=== PATIENT | female | born 1980 | race Caucasian/White ===

== ENCOUNTER 2020-04-22 07:44 | Outpatient (REF) | payer MEDICAID, SELFPAY ==
--- NOTE | ~2020-04-22 | MM_ITS ---
EXAMINATION: MM SCREENING DIGITAL BREAST TOMOSYNTHESIS, BILATERAL CLINICAL INFORMATION: Screening. Asymptomatic. Family history breast cancer, mother late 40s. The lifetime risk of breast cancer based on the Tyrer-Cuzick Model is 21%. COMPARISON: Mammography: 04/18/2019 (baseline) TECHNIQUE: Digital breast tomosynthesis is performed in both the craniocaudal and mediolateral oblique views along with computer-aided detection (CAD). Synthesized 2D images are generated from the tomosynthesis. FINDINGS: There are scattered areas of fibroglandular density (ACR BI-RADS breast composition Category b). There are no significant masses, abnormal calcifications, or other abnormalities. Parenchymal pattern is similar to prior studies. No significant changes. MM/MM tomosynthesis screening BI IMPRESSION: No mammographic evidence of malignancy. ASSESSMENT: BI-RADS 1: Negative RECOMMENDATION: 1. Routine annual mammography screening. 2. The lifetime risk of breast cancer based on the Tyrer-Cuzick Model is 21%. Additional annual adjunct screening with breast MRI may be of benefit in women with a risk score of 20% or greater. This patient's information was entered into a reminder system with a target due date for their next mammogram.
== END 2020-04-22 07:45 | disposition home or self-care (01) ==
LOC: HO.MAMMO 07:44
PROVIDERS: PCP Internal Medicine; Visit Provider Internal Medicine
DX: Z12.31 Encounter for screening mammogram for malignant neoplasm of breast (principal)
CPT/HCPCS: 77063; 77067

== ENCOUNTER → 2021-06-16 13:35 | Outpatient (RCR) | payer OTHER, MEDICAID, SELFPAY | END | disposition home or self-care (01) | LOC: HO.PTCHIC 11-28 13:47 | PROVIDERS: PCP Internal Medicine; Visit Provider Psychiatry & Neurology Neurology | DX: M25.562 Pain in left knee (principal) | CPT/HCPCS: 97110; 97161 ==

== ENCOUNTER 2022-03-25 15:10 | Outpatient (REF) | payer MEDICAID, SELFPAY ==
--- NOTE | ~2022-03-25 | XR_ITS ---
EXAMINATION: XR cervical spine 4V CLINICAL INFORMATION: Pain COMPARISON: None TECHNIQUE: 5 views of the cervical spine were obtained. FINDINGS: The cervical spine is visualized to the level of C7-T1 on the lateral view. Minimal anterolisthesis of C3 on C4. Vertebral body heights are maintained. Lateral masses of C1 are well aligned on C2. Visualized portion of the dens is intact. Mild degenerative disc disease at multiple levels, manifested by loss of disc space height and facet arthropathy. Uncovertebral hypertrophy and facet arthropathy results in moderate neural foraminal narrowing on the right at C3-C4 and in mild neural foraminal narrowing on the left at C3-C4 and C4-C5. No prevertebral soft tissue swelling. XR/XR cervical spine 4V IMPRESSION: * Mild spondylosis of the cervical spine, as above detailed. Spondylolisthesis, as above detailed. * Mild to moderate neural foraminal narrowing, as above detailed.
== END 2022-03-25 15:11 | disposition home or self-care (01) ==
LOC: HO.HMGCX 15:10
PROVIDERS: PCP Internal Medicine; Visit Provider Internal Medicine
DX: M54.2 Cervicalgia (principal)
CPT/HCPCS: 72050

== ENCOUNTER 2022-04-07 12:56 | Outpatient (REF) | payer MEDICAID, SELFPAY ==
--- NOTE | ~2022-04-07 | XR_ITS ---
EXAMINATION: XR RIBS, RIGHT CLINICAL INFORMATION: Right-sided rib pain status post fall. COMPARISON: None TECHNIQUE: 3 views of the right ribs were obtained. FINDINGS: Lungs are clear. No consolidation, pneumothorax, or pleural effusion. The cardiomediastinal silhouette and pulmonary vasculature are normal. Osseous structures are unremarkable. Ribs are intact. No fractures are identified. XR/XR ribs RT min 3V w CXR1V IMPRESSION: Unremarkable examination.
== END 2022-04-07 12:57 | disposition home or self-care (01) ==
LOC: HO.HMGCX 12:56
PROVIDERS: Visit Provider Internal Medicine
DX: R07.81 Pleurodynia (principal)
CPT/HCPCS: 71101

== ENCOUNTER 2022-04-27 12:59 | Outpatient (REF) | payer MEDICAID, SELFPAY ==
--- NOTE | 2022-04-27 | EEG_ITS ---
The waking background activity consists of a well-defined moderate-voltage posterior 10 Hz alpha frequency intermixed anteriorly with low-voltage fast frequencies. Photic stimulation, hyperventilation without activation. No sleep stages are identified. No focal, lateralizing, or paroxysmal discharges are seen. IMPRESSION: This waking EEG is within normal limits. MD LAYLA Freeman/MAN / [phone]
== END 2022-04-27 13:00 | disposition home or self-care (01) ==
LOC: HO.NEURO 12:59
PROVIDERS: PCP Internal Medicine; Visit Provider Internal Medicine
DX: R40.20 Unspecified coma (principal)
CPT/HCPCS: 95816

== ENCOUNTER → 2022-06-21 09:04 | Outpatient (REF) | payer MEDICAID, SELFPAY ==
--- NOTE | 2022-06-21 09:08 | HM_ITS ---
Conclusion: 1. Patient was monitored for total period of 2 days and 22 hours 2. Baseline was normal sinus rhythm with average heart of 76 beats per minute 3. No significant pauses or bradycardia noted 4. Rare PACs noted 1 SVT episode of 5 beats at 115 beats per minute 5. Patient reported 4 events with symptoms of racing heart or dizziness correlating with sinus rhythm MTDD
== END ==
LOC: HO.CARD 09:04
PROVIDERS: Visit Provider Internal Medicine
DX: R00.2 Palpitations (principal)
CPT/HCPCS: 93242

== ENCOUNTER 2023-03-21 09:02 | Outpatient (REF) | payer MEDICAID, SELFPAY | END 2023-03-21 09:03 | disposition home or self-care (01) | LOC: HO.SH 09:02 | PROVIDERS: Visit Provider Internal Medicine | DX: Z01.118 Encounter for examination of ears and hearing with other abnormal findings (principal); H90.3 Sensorineural hearing loss, bilateral; H93.13 Tinnitus, bilateral | CPT/HCPCS: 92557; 92567 ==

== ENCOUNTER 2023-04-05 10:17 | Outpatient (REF) | payer MEDICAID, SELFPAY ==
--- NOTE | ~2023-04-05 | XR_ITS ---
EXAMINATION: XR HAND/WRIST, RIGHT CLINICAL INFORMATION: Right-sided pain with question CMC arthritis. COMPARISON: Right hand 02/08/2019. TECHNIQUE: PA, lateral, and oblique views of the right hand and wrist. FINDINGS: There is some mild degenerative changes seen at the first CMC joint with some sclerosis and osteophyte formation and some mild lateral subluxation. Findings appear slightly worsened when compared to the 02/08/2019 study. Incidental note made once again of some small cysts in the capitate. No fractures or dislocations. No bony destructive lesions. XR/XR hand wrist RT IMPRESSION: Mild degenerative changes first CMC joint.
== END 2023-04-05 10:18 | disposition home or self-care (01) ==
LOC: HO.HOSX 10:17
PROVIDERS: PCP Internal Medicine; Visit Provider Physical Medicine & Rehabilitation
DX: M65.311 Trigger thumb, right thumb (principal); M25.541 Pain in joints of right hand; Z79.899 Other long term (current) drug therapy
CPT/HCPCS: 73110; 73130; 99202

== ENCOUNTER 2023-04-05 10:17 | Outpatient (AMB) | payer MEDICAID, SELFPAY ==
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
== END 2023-04-05 11:11 | disposition home or self-care (01) ==
PROVIDERS: PCP Internal Medicine; Visit Provider Physical Medicine & Rehabilitation
DX: M65.311 Trigger thumb, right thumb (principal); M25.541 Pain in joints of right hand
CPT/HCPCS: 99204

== ENCOUNTER 2023-04-05 11:16 | Outpatient (REF) | payer MEDICAID, SELFPAY ==
[2023-04-05 16:28] LABS: Rheumatoid Factor < 13.0 IU/mL (<15.0)
[2023-04-12 15:24] LABS: Anti Nuclear Antibody Screen NEGATIVE (NEGATIVE)
== END 2023-04-05 11:17 | disposition home or self-care (01) ==
LOC: HO.10HDL 11:16
PROVIDERS: Visit Provider Physical Medicine & Rehabilitation
DX: M25.50 Pain in unspecified joint (principal); M65.311 Trigger thumb, right thumb
CPT/HCPCS: 36415; 73110; 73130; 86038; 86431; 99202

== ENCOUNTER 2023-04-06 09:22 | Outpatient (RCR) | payer MEDICAID, SELFPAY ==
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
== END 2023-07-11 14:26 | disposition still patient (30) ==
LOC: HO.SH 09:22
PROVIDERS: Visit Provider Internal Medicine
DX: R47.9 Unspecified speech disturbances (principal)
CPT/HCPCS: 92523

== ENCOUNTER 2023-04-25 11:23 | Outpatient (REF) | payer MEDICAID, SELFPAY ==
[2023-04-25 14:48] LABS: Cholesterol 151 mg/dL (<200); HDL Cholesterol 43 mg/dL (>40); LDL Cholesterol Calculated 90 mg/dL (<100); Triglycerides 90 mg/dL (<150)
[2023-04-26 08:07] LABS: ~HepC Num1 0.11 S/CO (0.00-0.79); ~Hepatitis C Antibody Nonreactive (Nonreactive)
== END 2023-04-25 11:24 | disposition home or self-care (01) ==
LOC: HO.CHCLDS 11:23
PROVIDERS: Visit Provider Internal Medicine
DX: Z00.00 Encounter for general adult medical examination without abnormal findings (principal); E11.65 Type 2 diabetes mellitus with hyperglycemia; E66.9 Obesity, unspecified
CPT/HCPCS: 36415; 80061; 86803

== ENCOUNTER 2023-05-11 09:20 | Outpatient (AMB) | payer MEDICAID, SELFPAY ==
--- NOTE | 2023-05-11 09:28 | MHC.OFFVIS ---
Intake Intake Visit Reasons: OV - Right Trigger Thumb Intake Note: Pt presents to the office today for an office visit for right trigger thumb. Pt states she is still having pain and she states she has not had any improvement. Pt states the pain goes from her thumb up to her elbow. Pt states she isnt sure if she has numbness and tingling from her trigger thumb or her neuropathy. Allergies Penicillins [PENICILLINS] Allergy (Unknown, Unverified 05/11/23 09:28) UNKNOWN Sulfa (Sulfonamide Antibiotics) [SULFA (SULFONAMIDE ANTIBIOTICS)] Allergy (Unknown, Unverified 05/11/23 09:28) UNKNOWN Medication List - Last Reconciled 05/11/23 by Mireya Garcia MD aripiprazole 5 mg PO BEDTIME cholecalciferol (vitamin D3) (Vitamin D3) 50 mcg PO DAILY cyanocobalamin (vitamin B-12) (Vitamin B-12) 500 mcg PO DAILY diclofenac potassium 50 mg PO BID diclofenac sodium 1% 2 grams topical TID PRN econazole 1% appl topical QAM hydroxyzine pamoate 50 mg PO BEDTIME PRN loratadine 10 mg PO QAM magnesium oxide 400 mg PO DAILY metformin 500 mg PO pravastatin 80 mg PO QAM sertraline 25 mg PO QAM spironolactone 100 mg PO BID topiramate 50 mg PO BID verapamil ER 120 mg PO QPM verapamil ER 240 mg PO DAILY HPI HPI Comments History of Present Illness Details Per medical records review, patient has history of Chiari 1 malformation, chronic migraine without aura, vertigo, balance issues, cognitive difficulty, word-finding difficulty, follows with Neurology Dr. Ayla Graff). History of ICH 2019, non traumatic. She had been complaining of right wrist pain and right 1st MCP thumb pain, per medical records from [facility]. EMG report January [address] Reveles, normal. Dr. Reveles thought it was trigger thumb. History of diabetes. History of neuropathy, hard for her to tell which part comes from that. Family history of RA, mom. Right worse lef handed thumb/wrist pain for at least 2 years. No definite trauma or falls. She likes crafting, wreaths. Pain bothers her daily. Points to bottoms of thumb. No xray recently. After I saw her, I put her on a thumb/finger splint. She wore this all the time during the day. She says she has not noticed any triggering/locking of the finger. However he continues to have pain, pointing to APB muscle. Seems to be coming from the wrists as well. She likes to craft. [facility] Medical History (Updated 05/11/23 @ 12:05 by Mireya Garcia MD) CMC arthritis Carpal tunnel syndrome of right wrist Surgical History Hx of tonsillectomy Social History Household Members: Children Housing: Apartment Alcohol intake: current Alcohol intake frequency: holidays/special occasions only Patient Tobacco Use Status: Current everyday Tobacco user Cigarettes Per Day: 2 Substance Use Type: Marijuana Physical Exam Constitutional: Patient appears to be in no acute distress, well nourished and well developed. MSK: No joint effusion noted. No deformity noted. No intrinsic hand weakness noted. No atrophy noted. Cornelia test negative. Carpal compression test positive right. Tinel sign negative. No triggering. Strength is 5/5 in all muscle groups tested. No increased tone noted. Neurological: Randolph?s negative bilaterally. Gait is non-antalgic without loss of balance. Results Reviewed Results Reviewed: Ordering Physician: Mireya Mohan Date of Service: 04/05/23 Procedure(s): XR hand wrist RT Accession Number(s): [id number] cc: Alfreda Perez MD; Mireya Mohan~ EXAMINATION: XR HAND/WRIST, RIGHT CLINICAL INFORMATION: Right-sided pain with question CMC arthritis. COMPARISON: Right hand 02/08/2019. TECHNIQUE: PA, lateral, and oblique views of the right hand and wrist. FINDINGS: There is some mild degenerative changes seen at the first CMC joint with some sclerosis and osteophyte formation and some mild lateral subluxation. Findings appear slightly worsened when compared to the 02/08/2019 study. Incidental note made once again of some small cysts in the capitate. No fractures or dislocations. No bony destructive lesions. XR/XR hand wrist RT IMPRESSION: Mild degenerative changes first CMC joint. Assessment & Plan Assessment & Plan (1) Carpal tunnel syndrome of right wrist: Code(s): G56.01 - Carpal tunnel syndrome, right upper limb (2) CMC arthritis: Code(s): M19.049 - Primary osteoarthritis, unspecified hand Plan Clinically, I would say symptoms are coming from Carpal Tunnel Syndrome. However EMG done by Dr. Reveles last January was reported to be normal. I would still consider repeating that 6 months after. We will put her on a resting wrist splint for sleeping time. Since she likes to craft and a thumb pain aggravates her, would put her on a comfort cool thumb spica that she can wear during grafting or during the day. No signs of trigger finger today. No signs of de Quervain. Mild 1st CMC joint arthritis. Assessment and plan discussed with patient, and patient was agreeable. All questions were answered thoroughly. Follow-up 2 months. Mireya Garcia MD, DAJA Board Certified, [place] [employer] and Rehabilitation (ABPMR) Board Certified, [place] [employer] Electrodiagnostic Medicine (ABEM) Coding Level of Care Code Est Pt Level 3 (34534) Diagnoses Carpal tunnel syndrome of right wrist G56.01 CMC arthritis M19.049
== END 2023-05-11 10:13 | disposition home or self-care (01) ==
PROVIDERS: PCP Internal Medicine; Referring Provider Internal Medicine; Visit Provider Physical Medicine & Rehabilitation
DX: G56.01 Carpal tunnel syndrome, right upper limb (principal); M19.049 Primary osteoarthritis, unspecified hand
CPT/HCPCS: 99213

== ENCOUNTER → 2023-05-11 09:20 | Outpatient (BNVA) | payer MEDICAID, SELFPAY | PROVIDERS: PCP Internal Medicine; Visit Provider Physical Medicine & Rehabilitation | DX: G56.01 Carpal tunnel syndrome, right upper limb (principal); M19.041 Primary osteoarthritis, right hand | CPT/HCPCS: 99212 ==

== ENCOUNTER 2023-05-18 09:31 | Outpatient (REF) | payer MEDICAID, SELFPAY | END 2023-05-18 09:32 | disposition home or self-care (01) | LOC: HO.MAMMO 09:31 | PROVIDERS: PCP Internal Medicine; Visit Provider Internal Medicine | DX: Z12.31 Encounter for screening mammogram for malignant neoplasm of breast (principal) | CPT/HCPCS: 77063; 77067 ==

== ENCOUNTER → 2023-05-18 09:45 | Outpatient (BNV) | payer MEDICAID, SELFPAY | PROVIDERS: PCP Internal Medicine; Visit Provider Radiology Diagnostic Radiology | DX: Z12.31 Encounter for screening mammogram for malignant neoplasm of breast (principal) | CPT/HCPCS: 77063; 77067 ==

== ENCOUNTER 2023-06-15 09:45 | Outpatient (AMB) | payer MEDICAID, SELFPAY ==
--- NOTE | 2023-06-15 09:52 | MHC.OFFVIS ---
Vital Signs 06/15/23 10:02 Height 5 ft 4 in Weight 194 lb BMI 33.3 Intake Visit Reasons: OV - Right Trigger Thumb Intake Note: Jacey 43 yr old female presents today for her 2 month follow up for her right hand Carpal tunnel syndrome and CMC arthritis pain s/p wearing brace given. States her pain is has not improved. States she is now having pain in her left thumb however her right is worse since its her dominant hand. Allergies Penicillins [PENICILLINS] Allergy (Unknown, Unverified 06/15/23 10:03) UNKNOWN Sulfa (Sulfonamide Antibiotics) [SULFA (SULFONAMIDE ANTIBIOTICS)] Allergy (Unknown, Unverified 06/15/23 10:03) UNKNOWN Medication List - Last Reconciled 06/15/23 by Mireya Garcia MD aripiprazole 5 mg PO BEDTIME cholecalciferol (vitamin D3) (Vitamin D3) 50 mcg PO DAILY cyanocobalamin (vitamin B-12) (Vitamin B-12) 500 mcg PO DAILY diclofenac potassium 50 mg PO BID diclofenac sodium 1% 2 grams topical TID PRN econazole 1% appl topical QAM hydroxyzine pamoate 50 mg PO BEDTIME PRN loratadine 10 mg PO QAM magnesium oxide 400 mg PO DAILY metformin 500 mg PO pravastatin 80 mg PO QAM sertraline 25 mg PO QAM spironolactone 100 mg PO BID topiramate 50 mg PO BID verapamil ER 120 mg PO QPM verapamil ER 240 mg PO DAILY HPI Comments Details: Per medical records review, patient has history of Chiari 1 malformation, chronic migraine without aura, vertigo, balance issues, cognitive difficulty, word-finding difficulty, follows with Neurology Dr. Ayla Graff). History of ICH 2019, non traumatic. She had been complaining of right wrist pain and right 1st MCP thumb pain, per medical records from [facility]. EMG report January [address] Reveles, normal. Dr. Reveles thought it was trigger thumb. History of diabetes. History of neuropathy, hard for her to tell which part comes from that. Family history of RA, mom. Right worse lef handed thumb/wrist pain for at least 2 years. No definite trauma or falls. She likes crafting, wreaths. Pain bothers her daily. Points to bottoms of thumb. No xray recently. She has been wearing thumb spica daily and wrist splints nightly as advised. She says she has not noticed any triggering/locking of the finger. Wrist pain improved. However he continues to have pain, pointing to APB muscle. And almost constant numbness 1st and 2nd fingertips, even left has started. Note that she had previously poorly controlled DM, now improved/controlled, and was told in past to have neuropathy, though no EMG on BLE. FORMERLY [facility], [facility] Medical History (Updated 06/15/23 @ 10:16 by Mireya Garcia MD) CMC arthritis Carpal tunnel syndrome of right wrist Surgical History Hx of tonsillectomy Social History Household Members: Children Housing: Apartment Alcohol intake: current Alcohol intake frequency: holidays/special occasions only Patient Tobacco Use Status: Current everyday Tobacco user Cigarettes Per Day: 2 Substance Use Type: Marijuana Physical Exam Vital Signs: BMI result Body Mass Index 33.3 Constitutional: Patient appears to be in no acute distress, well nourished and well developed. MSK: No joint effusion noted. No deformity noted. No intrinsic hand weakness noted. No atrophy noted. Cornelia test negative. Carpal compression test positive right. Tinel sign negative on elbow. No triggering. Strength is 5/5 in all muscle groups tested. No increased tone noted. Neurological: Randolph?s negative bilaterally. Gait is non-antalgic without loss of balance. Results Reviewed Results Reviewed: Ordering Physician: Mireya Mohan Date of Service: 04/05/23 Procedure(s): XR hand wrist RT Accession Number(s): [id number] cc: Alfreda Perez MD; Mireya Mohan~ EXAMINATION: XR HAND/WRIST, RIGHT CLINICAL INFORMATION: Right-sided pain with question CMC arthritis. COMPARISON: Right hand 02/08/2019. TECHNIQUE: PA, lateral, and oblique views of the right hand and wrist. FINDINGS: There is some mild degenerative changes seen at the first CMC joint with some sclerosis and osteophyte formation and some mild lateral subluxation. Findings appear slightly worsened when compared to the 02/08/2019 study. Incidental note made once again of some small cysts in the capitate. No fractures or dislocations. No bony destructive lesions. XR/XR hand wrist RT IMPRESSION: Mild degenerative changes first CMC joint. Assessment & Plan Assessment & Plan (1) Carpal tunnel syndrome on both sides: Code(s): G56.03 - Carpal tunnel syndrome, bilateral upper limbs Category: Medical Plan She no longer have signs of De Quervain tenosynovitis, non tender now, with wearing the thumb spica splints during day time. However continues to have numbness on tips of 1st and 2nd digits, bilateral, and pain on thenar eminence. No atrophy. Xray did show CMC arthritis but no point tenderness on the joint. I would still recommend repeating EMG BUE. Patient willing. Continue wrist splints at night, will get her one for left. Note that she had previously poorly controlled DM, now improved/controlled, and was told in past to have neuropathy, though no EMG on BLE. Orders: Orders NE nerve conduction velocity Today G56.03 - Carpal tunnel syndrome, bilateral upper limbs NE electromyogram (EMG) Today G56.03 - Carpal tunnel syndrome, bilateral upper limbs Coding Level of Care Code Est Pt Level 3 (45110) Diagnoses Carpal tunnel syndrome on both sides G56.03
[2023-06-15 10:02] VITALS: BMI 33.3
== END 2023-06-15 10:24 | disposition home or self-care (01) ==
PROVIDERS: PCP Internal Medicine; Referring Provider Internal Medicine; Visit Provider Physical Medicine & Rehabilitation
DX: G56.03 Carpal tunnel syndrome, bilateral upper limbs (principal)
CPT/HCPCS: 99213

== ENCOUNTER → 2023-06-15 09:45 | Outpatient (BNVA) | payer MEDICAID, SELFPAY | PROVIDERS: PCP Internal Medicine; Visit Provider Physical Medicine & Rehabilitation | DX: G56.03 Carpal tunnel syndrome, bilateral upper limbs (principal) | CPT/HCPCS: 99212 ==

== ENCOUNTER 2023-06-30 09:53 | Outpatient (REF) | payer MEDICAID, SELFPAY ==
--- NOTE | 2023-06-30 09:58 | EMG_ITS ---
Chief complaint: Bilateral hand numbness Reason for referral: Evaluate for Carpal Tunnel Syndrome Procedure done: Bilateral upper extremities NCS/EMG Precautions and/or limitations: None The limb temperature was monitored continuously and remained between 32-36 degrees C during the performance of the NCS. Nerve Conduction Studies Anti Sensory Summary Table ?Stim Site NR Onset (ms) Norm Onset (ms) Peak (ms) Norm Peak (ms) O-P Amp (?V) Norm O-P Amp Site1 Site2 Delta-0 (ms) Dist (cm) Usman (m/s) Norm Usman (m/s) Left Median Anti Sensory (2nd Digit) Wrist ? 2.8 3.4 <3.6 51.3 >10 Wrist 2nd Digit 2.8 14.0 50 Right Median Anti Sensory (2nd Digit) Wrist ? 2.7 3.3 <3.6 56.8 >10 Wrist 2nd Digit 2.7 14.0 52 Left Ulnar Anti Sensory (5th Digit) Wrist ? 2.5 3.1 <3.7 43.8 >15.0 Wrist 5th Digit 2.5 14.0 56 Right Ulnar Anti Sensory (5th Digit) Wrist ? 2.2 2.8 <3.7 31.1 >15.0 Wrist 5th Digit 2.2 14.0 64 Motor Summary Table ?Stim Site NR Onset (ms) Norm Onset (ms) O-P Amp (mV) Norm O-P Amp iAmp (mV) Amp (1st) (%) Site1 Site2 Delta-0 (ms) Dist (cm) Usman (m/s) Norm Usman (m/s) Left Median Motor (Abd Poll Brev) Wrist ? 3.4 <3.9 9.2 >4.5 11.8 100.0 Elbow Wrist 4.0 21.5 54 >45 Elbow ? 7.4 9.0 11.4 97.8 Right Median Motor (Abd Poll Brev) Wrist ? 3.7 <3.9 9.0 >4.5 11.3 100.0 Elbow Wrist 4.0 19.5 49 >45 Elbow ? 7.7 8.5 10.8 94.4 Left Ulnar Motor (Abd Dig Minimi) Wrist ? 2.8 <3.0 6.5 >5 7.4 100.0 B Elbow Wrist 3.3 18.0 55 >45 B Elbow ? 6.1 6.3 7.7 96.9 A Elbow B Elbow 1.6 10.0 62 >45 A Elbow ? 7.7 6.4 7.7 98.5 Right Ulnar Motor (Abd Dig Minimi) Wrist ? 2.6 <3.0 8.8 >5 9.9 100.0 B Elbow Wrist 3.4 18.5 54 >45 B Elbow ? 6.0 8.3 9.5 94.3 A Elbow B Elbow 1.4 10.0 71 >45 A Elbow ? 7.4 7.2 8.3 81.8 Comparison Summary Table ?Stim Site NR Peak (ms) Norm Peak (ms) P-T Amp (?V) Site1 Site2 Delta-P (ms) Norm Delta (ms) Left Median/Radial Dig I Comparison (Digit 1 - 10cm) Median ? 2.8 <2.9 74.4 Median Radial 0.8 Radial ? 2.0 <2.8 30.0 Right Median/Radial Dig I Comparison (Digit 1 - 10cm) Median ? 2.8 <2.9 66.4 Median Radial 0.5 Radial ? 2.3 <2.8 24.0 EMG ?Side Muscle Nerve Root Ins Act Fibs Psw Amp Dur Poly Recrt Int Pat Comment Right 1stDorInt Ulnar C8-T1 Nml Nml Nml Nml Nml 0 Nml Complete Right FlexCarRad Median C6-7 Nml Nml Nml Nml Nml 0 Nml Complete Right Biceps Musculocut C5-6 Nml Nml Nml Nml Nml 0 Nml Complete Right Triceps Radial C6-7-8 Nml Nml Nml Nml Nml 0 Nml Complete Right Deltoid Axillary C5-6 Nml Nml Nml Nml Nml 0 Nml Complete Left 1stDorInt Ulnar C8-T1 Nml Nml Nml Nml Nml 0 Nml Complete Left FlexCarRad Median C6-7 Nml Nml Nml Nml Nml 0 Nml Complete Left Biceps Musculocut C5-6 Nml Nml Nml Nml Nml 0 Nml Complete Left Triceps Radial C6-7-8 Nml Nml Nml Nml Nml 0 Nml Complete Left Deltoid Axillary C5-6 Nml Nml Nml Nml Nml 0 Nml Complete FINDINGS: Significant interlatency difference seen between median and radial sensory nerves, bilateral. Otherwise rest of nerves tested were within normal. Concentric needle EMG was performed in selected muscles of the bilateral upper extremities. Study did not reveal signs of electric abnormalities as shown in the table below. IMPRESSION: 1. This is an abnormal study. 2. There is electrodiagnostic evidence for bilateral very mild/borderline median neuropathy at the wrist, still consistent with carpal tunnel syndrome. 3. There is no electrodiagnostic evidence for ulnar neuropathy, brachial plexopathy, or cervical radiculopathy. Thank you for your kind referral. Mireya Garcia MD, DAJA Board Certified, [place] [employer] and [employer] (ABPMR) Board Certified, [place] Board of Electrodiagnostic Medicine (ABEM) CODIN 53681 x 2 MTDD
== END 2023-06-30 09:54 | disposition home or self-care (01) ==
LOC: HO.NEURO 09:53
PROVIDERS: PCP Internal Medicine; Visit Provider Physical Medicine & Rehabilitation
DX: G56.03 Carpal tunnel syndrome, bilateral upper limbs (principal)
CPT/HCPCS: 95886; 95911

== ENCOUNTER → 2023-06-30 09:58 | Outpatient (BNV) | payer MEDICAID, SELFPAY | PROVIDERS: PCP Internal Medicine; Visit Provider Physical Medicine & Rehabilitation | DX: G56.03 Carpal tunnel syndrome, bilateral upper limbs (principal) | CPT/HCPCS: 95886; 95911 ==

== ENCOUNTER 2024-04-18 11:29 | Outpatient (REF) | payer MEDICAID, SELFPAY ==
[2024-04-18 14:21] LABS: MANUAL DIFF FLAG NO
[2024-04-18 14:25] LABS: Creatinine Urine 180.38 mg/dL; Microalbum/Creatinine Ratio Ur 4.4 ug/mg cr (<30)
[2024-04-18 14:30] LABS: Basophils Percent Auto 0.4 % (0-2); Eosinophils Absolute Auto 0.1 X10*3/uL (0.0-0.4); Eosinophils Percent Auto 0.7 % (0-4); Hematocrit 42.8 % (37.0-47.0); Hemoglobin 14.9 g/dl (12.0-16.0); Imm Gran Abs Auto 0.03 X10*3/uL (0.00-0.03); Imm Gran Pct Auto 0.4 % (0.0-0.4); Lymphocytes Percent Auto 25.3 % (20-40); Mean Corpuscular HGB Conc 34.8 g/dl (31.0-35.0); Mean Corpuscular Hemoglobin 30.7 pg (27.0-33.0); Mean Corpuscular Volume 88.2 fL (80.0-98.0); Mean Platelet Volume 10.6 fL (9.4-12.3); Monocytes Absolute Auto 0.4 X10*3/uL (0.1-1.2); Neutrophils Absolute Auto 5.5 x10*3/uL (2.0-8.3); Neutrophils Percent Auto 68.2 % (45-73); Platelet Count 225 X10*3/uL (160-400); Red Blood Count 4.85 X10*6/uL (4.20-5.50); Red Cell Distribution Width 13.2 % (11.0-16.0)
--- OUTSIDE RECORDS SUMMARY | 2024-04-18 14:51 | XMS_ITS | Clinical Summary ---
Author Organization [facility] Address [address] [place] [address] Care Team Providers Care Network Specialist Name Role Phone Alfreda Perez Primary Care Provider [phone] Allergies Active Allergy Reactions Criticality Noted Date Comments Penicillins Hives 01/21/2010 Sulfa (Sulfonamide Antibiotics) Hives 01/06 Medications cyclobenzaprine (FLEXERIL) 10 mg tablet Take 5 mg by mouth 2 times a day as needed. 3 Active loratadine (CLARITIN) 10 mg tablet Take 1 tablet by mouth once a day. 3 Active metFORMIN (GLUCOPHAGE) 500 mg tablet Take 500 mg by mouth daily with food. Active omeprazole (PriLOSEC) 40 mg capsule Take 1 capsule by mouth. 2 Active pravastatin (PRAVACHOL) 80 mg tablet Take 80 mg by mouth once a day. Active sertraline (ZOLOFT) 25 mg tablet Take 25 mg by mouth once a day. Active spironolactone (ALDACTONE) 100 mg tablet Take 100 mg by mouth once a day. Active hydrocortisone 2.5% cream Apply topically to the affected area 2 times a day. Apply to affected area 3 Active econazole nitrate 1% cream Apply topically to the affected area once a day. 3 Active diclofenac (CATAFLAM) 50 mg tablet Take 50 mg by mouth 2 times a day. Active aspirin-acetami nophen-caffeine (Excedrin Migraine) 250-250-65 mg per tablet Take 1 tablet by mouth every 6 hours as needed for headache. 90 tablet 11 3 Active lamoTRIgine (LaMICtal) 25 mg tablet Taking 50 mg once a day. 4 Active IPRATROPIUM BROMIDE NASAL Administer 21 mcg into affected nostril(s). Active topiramate (TOPAMAX) 100 mg tablet Take 1 tablet (100 mg total) by mouth once a day. 30 tablet 5 4 Active magnesium oxide (MAG-OX) 400 mg (241.3 mg mag) tablet Take 1 tablet (400 mg total) by mouth 2 times a day. 30 tablet 5 4 Active magnesium oxide (MAG-OX) 400 mg (241.3 mg mag) tablet Take 1 tablet (400 mg total) by mouth 2 (two) times a day. 60 tablet 4 Active verapamil SR (CALAN SR) 120 mg tablet TAKE 1 TABLET BY MOUTH EVERY EVENING WITH VERAPAMIL 240 MG EVERY MORNING TOLERATED 90 tablet 11 4 Active cholecalciferol (VITAMIN D3) 2,000 unit capsule TAKE 1 CAPSULE BY MOUTH EVERY DAY 90 capsule 5 4 Active cyanocobalamin (vitamin B-12) 500 mcg tablet Take 1 tablet (500 mcg total) by mouth once a day. 90 tablet 4 Active riboflavin (VITAMIN B2) 100 mg tablet Take 2 tablets (200 mg total) by mouth 2 times a day. 120 tablet 4 Active verapamil SR (CALAN SR) 240 mg tablet Take 1 tablet (240 mg total) by mouth in the morning. Take verapamil ER 240 mg in the morning along with 120 mg in the evening 90 tablet 4 Active Active Problems Problem Noted Date Diagnosed Date Headache, chronic migraine without aura 10/24/19 24 Vitamin B12 deficiency 01/01/2023 Vitamin D deficiency 01/01/2023 Right-sided nontraumatic intracerebral hemorrhag e 12/21/2022 Cognitive impairment 12/21/2022 Chronic migraine without aur a with status migrainosus, not intractable 12/21/2022 Cocaine abuse in remission ([facility]) 12/21/2022 Alcoholism in remission ([facility]) 12/21/2022 Overview (12/21/2022): still has 2-3 drinks a month Balance problem 12/21/2022 Cannabis dependence, daily use 12/21/2022 Headache disorder 12/21/2022 Word finding difficulty 12/21/2022 Stutter 12/21/2022 Dysphagia, oropharyngeal phase 12/21/2022 Carpal tunnel syndrome of right wrist 12/21/2022 Cervical stenosis of spinal canal 12/21/2022 Chronic low back pain with left-sided sciatica 1 02/20/2022 Class 1 obesity with serious comorbidity and body mass index (BMI) of 30.0 to 30.9 in adult 12/21/2022 Chiari I malformation (CMS/HCC) 12/21/2022 Encounters Date Type Department Care Team Description 04/11/2024 2:00 PM EST Office Visit [facility] [address] [place], [place] [id number] Pulp Grinder Feeder: Robert Macedo MD Chronic migraine without aura without status migrainosus, not intractable (Primary Dx) 01/25/2024 Orders Only [facility] Neurology [address] [place] [id number] Ayla Graff MD 01/25/2024 Telephone [facility] Neurology [address] [place] [address] [id number] Tamiko Whitten, [facility] Med Refill from Last 3 Months Family History Medical History Relation Name Comments Aneurysm Father in right arm Stroke Father Migraines Father's Sister Alzheimer's disease Maternal Grandmother advanced quickly in 2 years and , was in her 80s; both parents had Alzheimers too and in 90s Migraines Maternal Grandmother Intracerebral hemorrhage Mother due to hypertension, in 20s Seizures Mother's Brother 1 recurrent siezures, grand mal, as a result at age 49 Brain cancer Mother's Brother 2 metastase s, unknown origin, before full workup; he was in Migraines Mother's Sister Stroke Paternal Grandfather Migraines Paternal Grandmother Stroke Paternal Grandmother Relation Name Status Comments Father Father's Sister Alive Maternal Grandmother Mother Mother's Brother 1 Mother's Brother 2 Alive Mother's Sister Alive Paternal Grandfather Paternal Grandmother Social History Tobacco Use Types Packs/Day Years Used Date Smoking Tobacco: Every Day Cigarettes Smokeless Tobacco: Never Tobacco Cessation:Ready to Q uit: Not Asked; Counseling Given: Not Answered Comments:0-2 cig/day, trying hard to quit Alcohol Use Standard Drinks/Week Comments Yes 0 (1 standard drink = 0.6 oz pure alcohol) down to 2-3 drinks a month; used to drink 5-6 drinks a day, cut down in mid-2022, trying to quit Comments Unknown Sex and Gender Information Value Date Recorded Sex Assigned at Female 10/31/2023 11:09 AM EDT Legal Sex Female 11:49 AM EDT Gender Identity Female 10/31/2023 11:09 AM EDT Sexual Orientation Not on file Last Filed Vital Signs Vital Sign Reading Time Taken Comments Blood Pressure 115/76 04/11/2024 2:00 PM EST Pulse 87 04/11/2024 2:00 PM EST Temperature 36.7 ??C (98 ??F) 12/21/2022 9:43 AM EST Respiratory Rate - - Oxygen Saturation 100% 01/16/2024 11:20 AM EST Inhaled Oxygen Concentration - - Weight 88.9 kg (196 lb) 08/25/2023 10:50 AM EDT Height - - Body Mass Index - - Plan of Treatment Upcoming Encounters Date Type Department Care Team (Late st Contact Info) Description 06/04/2024 11:00 AM EDT Office Visit [facility] [address] [place] [id number] Pulp Grinder Feeder: Trini Stephens 07/09/2024 11:00 AM EDT Office Visit [facility] [address] [place] [phone] Pulp Grinder Feeder: Trini Stephens 09/10/2024 10:00 AM EDT Follow-Up [facility] Neurology [address] [place] [id number] Ayla Graff MD [address] [place] [phone] Health Maintenance Due Date Last Done Comments Cervical Cancer Screening 1979 Cologuard 1979 Colon Cancer Screening 1979 Colonoscopy 1979 FOBT / Fit Test 1979 HIV Screening 1979 HPV and Pap Smear 1979 Pap Smear 1979 Sigmoidoscopy 1979 Medicare AWV 01/15/1980 Hepatitis B Vaccines (1 of 3 - 19+ 3-dose series) 1998 Mammogram 04/18/2021 04/19/2019 COVID-19 Vaccine (4 - 2023-2 5 season) 2023 04/25/2023, 07/03/2020, 06/05/2020 Influenza Vaccine (#1) 2023 , 12/10/2020, 11/20/2019, Additional history exists Basic Metabolic Panel 12/22/2023 12/21/2022 Alcohol/Substance Use Screening 02/07/2024 Depression Screening and Follow-Up 02/07/2024 Social Drivers of Health [place] ual Screening 02/07/2024 DTaP,Tdap,and Td Vaccines (3 - Td or Tdap) 02/28/2029 02/28/2019, 09/06/2007 RSV Vaccine (60+ years old a nd patients) (1 - 1-dose 75+ series) 2054 Hepatitis C Screening Completed 04/25/2023 Pneumococcal Vaccine: Pediat brii (0-5 Years) and At-Risk Patients (6-50 Years) Completed 04/25/2023 Procedures * Due to [place] [employer] law, this organization might not be sharing negative HIV tests. Procedure Name Priority Date/Time Associated Diagnosis Comments COMPREHENSIVE METABOLIC PANEL Routine 12/21/2022 1:11 PM EST Cognitive impairment from Last 3 Months or Most Recently Relevant to Health Maintenance Results * Due to [place] [employer] law, this organization might not be sharing negative HIV tests. * (ABNORMAL) Comprehensive Metabolic Panel (12/21/2022 1:11 PM EST) NA 137 135 - 145 mmol/L 12/21/2022 2:09 PM EST [facility] K 3.9 3.5 - 5.3 mmol/L 12/21/2022 2:09 PM [facility] Cl 108 97 - 110 mmol/L 12/21/2022 2:09 PM [facility] CO2 21(L) 24 - 32 mmol/L 12/21/2022 2:09 PM [facility] Anion Gap 8 5 - 15 12/21/2022 2:09 PM [facility] Glucose 92 70 - 99 mg/dL 12/21/2022 2:09 PM [facility] Creatinine 0.60 0.50 - 1.20 mg/dL 12/21/2022 2:09 PM [facility] Calcium 9.2 8.7 - 10.7 mg/dL 12/21/2022 2:09 PM [facility] Total Protein 7.3 6.0 - 8.0 g/dL 12/21/2022 2:09 PM [facility] Albumin 4.6 3.5 - 4.8 g/dL 12/21/2022 2:09 PM [facility] Bilirubin, Total 0.4 0.3 - 1.2 mg/dL 12/21/2022 2:09 PM [facility] Alkaline Phosphatase 66 30 - 115 U/L 12/21/2022 2:09 PM [facility] AST 10 10 - 40 U/L 12/21/2022 2:09 PM [facility] ALT 8(L) 10 - 40 U/L 12/21/2022 2:09 PM [facility] BUN 13 7 - 23 mg/dL 12/21/2022 2:09 PM [facility] eGFR >90 >=60 mL/min/1. 73m2 12/21/2022 2:09 PM [facility] Comment:The estimated glomer ular filtration rate (eGFR) is calculated using a new formula developed by the NKF-ASN task force to eliminate race-based correction factors. The new formula uses serum/plasma creatinine, age, and gender to determine eGFR. A value below 60mls/min might indicate kidney disease and will be flagged. For additional information, see Tomi et al, Am J Kidney Dis. 2021;79(2):268- 288, A Unifying Approach for GFR estimation: Recommendations of the NKF-ASN Task Force on Reassessing the Inclusion of Race in Diagnosing Kidney Disease . Blood Structure of peripheral vein / Unknown Venipuncture / Unknown 12/21/2022 1:11 PM EST 12/21/2022 1:23 PM EST Ayla Graff MD LAB BLOOD ORDERABLES Fi nal Result [facility] [address] [place] [address], from Last 3 Months or Most Recently Relevant to Health Maintenance Insurance [facility] MEDICARE Care Teams Network Specialist Relationship Specialty Start Date End Date Alfreda Perez [address] [place] [id number] PCP - General Internal Medicine 09/05/22
--- OUTSIDE RECORDS SUMMARY | 2024-04-18 14:51 | XMS_ITS | Clinical Summary ---
Author Organization [facility] Address [address] [place] [address] Care Team Providers Care Lead Embedded Software Engineer Name Role Phone Unavailable Primary Care Provider Unavailabl e Social History Tobacco Use Types Packs/Day Years Used Date Smoking Tobacco: Never Assessed Comments Unknown Sex and Gender Information Value Date Recorded Sex Assigned at Not on file Legal Sex Female 11:45 AM EST Gender Identity Not on file Sexual Orientation Not on file Plan of Treatment Health Maintenance Due Date Last Done Comments Hepatitis C Screening 1979 Pap Smear 1995 DTaP/Tdap/Td (1 - Tdap) 1997 Hep B (1 of 3 - 19+ 3-dose series) 1998 Mammogram/Breast Imaging 2019 COVID-19 Vaccine (2023-2 5 season) 2023 Influenza (#1) 2023 Zoster (Shingrix) (1 of 2) 2029 HPV Vaccine Aged Out No longer eligi ble based on patient's age to complete this topic Hep A Aged Out No longer eligi ble based on patient's age to complete this topic Hib Aged Out No longer eligi ble based on patient's age to complete this topic Meningococcal ACWY Aged Out No longer eligible based on patient's age to complete this topic Pneumococcal Aged Out No longer eligi ble based on patient's age to complete this topic Insurance MEDICAID
--- OUTSIDE RECORDS SUMMARY | 2024-04-18 14:51 | XMS_ITS | Continuity of Care Document ---
Author Organization [place] - [facility], Allergy Address [address] [address] Assessment Encounter Date Assessment Date Assessment LastModified by Organization Details LastModified Time 04/17/2024 04/17/2024 Visit With: MATILDE Vaughan Use of Antihistamine s: No If yes: Vial Test Change in medications: No If yes ? ? ? Increase in asthma symptoms If yes, inhaler use: Reaction to last injections: No If yes: ? ? ? Allergy Symptoms: Other: ? ? ? Missed: 1 week Dose Repeated Aware of Vial Test Notes:? ? ? [email or web address] Not available 04/17/2024 11:03:53 Plan of Treatment Reminders Order Date Submit Date Provider Last Modified By Organization Details Last Modified Time Details Appointments [facility] Allergy f-up 6mon 2024 10:00A M KEMI APPIAH MD Not available Not available Not available Lab None recorded . Referral None recorded . Procedures None recorded . Surgeries None recorded . Imaging None recorded . Medication Orders None recorded . Patient TargetsNo targets recorded. Patient InstructionsNo instructions recorded. Reason for Referral None Reported. Problems Name Problem SNOMED Code Status Onset Date Resolution Date Notes Provider Name and Address Organization Details Recorded Time Chronic rhinitis 08217647 Active 2023 KEMI APPIAH MD [address] [address], [place], [address], [facility] - [facility] 4 15:47:22 Allergic rhinitis 36529505 Active 2023 KEMI APPIAH MD [address] [address], [place], [address], [place] [facility] [place] 4 15:47:30 Non-allergi c rhinitis [id number] Active 2023 KEMI APPIAH MD [address] [address], [place], [address], [facility] - [facility] [place] 4 15:47:30 Seasonal allergic rhinitis 443398754 Active 2023 KEMI APPIAH MD [address] [address], [place], [address], [facility] - [facility] [place] 4 15:47:30 Sensorineur al hearing loss 76356666 Active 2023 KEMI APPIAH MD [address] [address], [place], [address], [facility] - [facility] [place] 4 08:16:05 Perennial allergic rhinitis 820510767 Active 2023 JOHANA QURIOZ RN [address] [facility],[address] [address], [place], [address], [facility] - [facility] [place] 4 09:17:37 Problem Notes None recorded. Procedures Surgical History Date Name Laterality Status Provider Name and Address Organization Details Recorded Time 04/18/19 25 Allergy Immunotherapy Injections completed MATILDE GUAJARDO [address] [facility],[address], [address], [facility] - [facility] 04/17/2024 11:05:46 04/03/19 25 Allergy Immunotherapy Injections completed FER ROBLES Maria Alejandra [address] [facility],[address], [address], [facility] - [facility] [place] 04/03/2024 10:48:10 03/20/19 25 Allergy Immunotherapy Injections completed MATILDE GUAJARDO [address] [facility],[address], [address], [facility] - [facility] [place] 03/20/2024 10:20:13 03/13/19 25 Allergy Immunotherapy Injections completed FER ROBLES [facility] [address] [facility],[address], [address], [place] - [facility] [place] 03/13/2024 14:13:16 03/06/19 25 Allergy Immunotherapy Injections completed FERNANDO ESPINOZA RMA [address] [address], [place], [address], [place] [facility] [place] 03/06/2024 10:20:35 03/01/19 25 Allergy Immunotherapy Injections completed FERNANDO ESPINOZA RMA [address] [address], [place], [address], [place] [facility] [place] 03/01/2024 14:10:10 02/22/19 25 Allergy Immunotherapy Injections completed FERNANDO ESPINOZA RMA [address] [address], [place], [address], [place] [facility] [place] 02/23/2024 11:02:27 02/15/19 25 Allergy Immunotherapy Injections completed FER ROBLES, RMA [address],[place] [address] [place] [address], [address], [place] [facility] [place] 02/16/2024 10:02:17 02/07/19 25 Allergy Immunotherapy Injections completed FER ROBLES RMA [address],[place] [address] [place] [address], [address], [place] [facility] [place] 02/09/2024 09:17:33 01/26/20 24 Allergy Immunotherapy Injections completed FERNANDO ESPINOZA RMA [address],[place] [address] [place] [address], [address], [place] [facility] [place] 01/26/2024 12:14:37 01/19/20 24 Allergy Immunotherapy Injections completed FER ROBLES, RMA [address] [address], [place], [address], [place] [facility] [place] 01/19/2024 11:12:55 01/09/20 24 Allergy Immunotherapy Injections completed JOHANA QUIROZ RN [address],[place] [address] [place] [address], [address], [place] [facility] 01/09/2024 10:57:12 01/03/20 24 Allergy Immunotherapy Injections completed FER PEARCEC, RMA [address] [address], [place], [address], [facility] - [facility] [place] 01/03/2024 14:45:14 12/27/19 24 Allergy Immunotherapy Injections completed FER ROBLES [facility] [place] [address] [place] [address], [address], [facility] - [facility] 12/27/2023 10:01:11 12/20/19 24 Allergy Immunotherapy Injections completed FER ROBLES [facility] [place] [address], [place], [address], [facility] - [facility] 12/20/2023 15:54:24 12/14/19 24 Allergy Immunotherapy Injections completed JOHANA QUIROZ RN 100 [facility] [place],[address], [address], [facility] - [facility] 12/14/2023 10:20:40 12/07/19 24 Allergy Immunotherapy Injections completed FER ROBLES [facility] 100 [facility] [place],[address], [address], [facility] - [facility] 12/07/2023 11:39:29 12/01/19 24 Allergy Immunotherapy Injections completed JOHANA QUIROZ RN [address] [facility],[address], [address], [facility] - [facility] 12/01/2023 10:41:51 11/20/19 24 Allergy Immunotherapy Injections completed JOHANA QUIROZ RN [facility] [place] [address] [place] [address], [address], [facility] - [facility] 11/20/2023 09:39:10 09/26/19 24 Allergy Testing-Full completed MATILDE GUAJARDO [address],[place] [address] [place] [address], [address], [facility] - [facility] 09/26/2023 15:15:09 09/19/19 Allergy Testing Modified- Quantitative Testing (MQT) Only completed MATILDE GUAJARDO [address] [address], [place], [address], [facility] - [facility] 09/19/2023 11:21:03 Imaging Results None recorded. Procedure Notes None recorded. Medical Equipment None Reported. Allergies Allergen ID Allergen Name Allergen Category Reaction Reaction Severity Criticality Documentation Date Start Date Code Code System Note Provider Name and Address Organization Details Recorded Time 222981 Product containin g penicilli n (product) medicatio n Not available Not available Not available 08/24/2023 06583 8001 SNOMED Judith zacariasSHARAD - [facility] 4 15:09:43 424950 Substance with sulfonami de structure and antibacte rial mechanism of action (substanc e) medicatio n Not available Not available Not available 08/24/2023 86660 8003 SNOMED Judith Lemus SHARAD zacarias - [facility] 4 15:09:50 Medications Name Sig Start Date Stop Date Status Note LastModified by Organization Details LastModified Time verapamil ER (SR) 120 mg tablet,exte nded release TAKE 1 TABLET BY MOUTH EVERY EVENING WITH VERAPAMIL 240 MG EVERY MORNING TOLERATED active Not Available Not Available No t Available hydrocortis one 0.5 % topical cream APPLY A THIN LAYER TO THE AFFECTED AREA(S) BY TOPICAL ROUTE 2 TIMES PER DAY active Not Available Not Available No t Available metformin 500 mg tablet TAKE 1 TABLET (500 MG) BY MOUTH WITH BREAKFAST AND WITH EVENING MEAL active Not Available Not Available No t Available Vitamin B-2 100 mg tablet TAKE 2 TABLETS (200 MG TOTAL) BY MOUTH 2 TIMES A DAY. active Not Available Not Available No t Available spironolact one 100 mg tablet TAKE 1 TABLET BY MOUTH TWICE A DAY active Not Available Not Available No t Available hydroxyzine pamoate 50 mg capsule TAKE 1 CAPSULE (50 MG) BY MOUTH IF NEEDED AT BEDTIME FOR ITCHING. 09/18 completed Not Available Not Available Not Available topiramate 25 mg tablet TAKE 2 TABLETS BY MOUTH 2 TIMES A DAY FOR MIGRAINES . STAY HYDRATED. active Not Available Not Available No t Available Vitamin B-12 500 mcg tablet TAKE 1 TABLET BY MOUTH EVERY DAY active Not Available Not Available No t Available lamotrigine 25 mg tablet TAKE 3 TABLETS BY MOUTH EVERY DAY active Not Available Not Available No t Available verapamil 120 mg tablet Take 1 tablet 3 times a day by oral route. 09/18 completed Not Available Not Available Not Available terbinafine HCl 250 mg tablet TAKE 1 TABLET (250 MG) BY MOUTH IN THE MORNING 09/18 completed Not Available Not Available Not Available pravastatin 80 mg tablet TAKE 1 TABLET (80 MG) BY MOUTH IN THE MORNING active Not Available Not Available No t Available magnesium oxide 400 mg (241.3 mg magnesium) tablet TAKE 1 TABLET BY MOUTH TWICE A DAY active Not Available Not Available No t Available econazole nitrate 1 % topical cream APPLY TO THE AFFECTED AND SURROUNDI NG AREAS OF SKIN BY TOPICAL ROUTE 2 TIMES PER DAY active Not Available Not Available No t Available diclofenac potassium 50 mg tablet Take 1 tablet twice a day by oral route. active Not Available Not Available No t Available docusate sodium 100 mg capsule TAKE ONE CAPSULE TWICE DAILY FOR 10 DAYS 09/18 completed Not Available Not Available Not Available sertraline 25 mg tablet TAKE 1 TABLET BY MOUTH EVERY DAY active Not Available Not Available No t Available omeprazole 20 mg capsule,del ayed release TAKE 1 CAPSULE BY MOUTH EVERY DAY active Not Available Not Available No t Available verapamil ER (SR) 240 mg tablet,exte nded release Take 1 tablet every day by oral route. active Not Available Not Available No t Available hydrocortis one 2.5 % topical cream APPLY TO AFFECTED AREA TWICE A DAY active Not Available Not Available No t Available epinephrine 0.3 mg/0.3 mL injection, auto-inject or TAKE 1 AUTO BY INJECTION ROUTE FOR 180 DAYS, FOR ANAPHYLAX IS. active Not Available Not Available No t Available topiramate 100 mg tablet TAKE 1 TABLET BY MOUTH EVERY DAY active Not Available Not Available No t Available doxycycline hyclate 100 mg tablet TAKE 1 TABLET BY MOUTH TWICE A DAY FOR 10 DAYS *LIMIT SUN EXPOSURE WHILE TAKING* 09/18 completed Not Available Not Available Not Available ipratropium bromide 21 mcg (0.03 %) nasal spray SPRAY 2 SPRAYS TWICE A DAY BY INTRANASA L ROUTE active Not Available Not Available No t Available loratadine 10 mg tablet TAKE 1 TABLET BY MOUTH EVERY DAY active Not Available Not Available No t Available verapamil ER 240 mg 24 hr capsule,ext ended release TAKE 1 CAPSULE BY MOUTH EVERY MORNING active Not Available Not Available No t Available aripiprazol e 5 mg tablet TAKE 1 TABLET BY MOUTH EVERYDAY AT BEDTIME active Not Available Not Available No t Available loratadine 08/23 completed Not Available Not Available Not Available Lomotil 09/18 completed Not Available Not Available Not Available FreeStyle Lite Strips TEST BLOOD SUGAR ONCE DAILY active Not Available Not Available No t Available diclofenac 1 % topical gel APPLY 2 GRAM'S TO AFFECTED AREA(s) THREE TIMES DAILY NEEDED active Not Available Not Available No t Available cholecalcif glenna (vitamin D3) 50 mcg (2,000 unit) capsule TAKE 1 CAPSULE BY MOUTH EVERY DAY active Not Available Not Available No t Available loratadine 10 mg capsule Take by oral route. 10/25 completed Not Available Not Available Not Available riboflavin (vitamin B2) 400 mg tablet TAKE 1 TABLET (400 MG TOTAL) BY MOUTH ONCE A DAY. active Not Available Not Available No t Available Vitals None Recorded Social History None recorded. Functional Status None recorded. Mental Status None recorded. Family History Nothing Reported. Medical History No medical history recorded. Gynecological HistoryNo gynecological history recorded. Obstetrics History GPAL:G 0 P 0 0 0 0 Past Encounters Encounter ID Performer Location Encounter Start Date Encounter Closed Date Diagnosis/Indication Diagnosis SNOMED-CT Code Diagnosis ICD10 Code Diagnosis Note [id number] FERNANDO ESPINOZA [facility] Allergy [address] [facility], [address] [place] [address] 03/20/2024 09:47:00 03/20/2024 10:21:14 Perennial allergic rhinitis 246715046 J30.89 [id number] [facility] Allergy [address] [place] [address] [address] [place] [address] 04/03/2024 10:01:54 04/03/2024 10:48:48 Perennial allergic rhinitis 916248119 J30.89 [id number] [facility] 100 [facility] [address] [place] [address] 04/17/2024 09:59:37 04/17/2024 11:06:25 Perennial allergic rhinitis 599547543 J30.89 Health Concerns Section Related Observation LastModified by Organization Detai ls LastModified Time None Recorded Concern Status LastModified by Organization Details LastModified Time None Recorded Payers Encounter Date Sequence Insurance Name Policy Number Policy Duggan Covered Member ID Duggan Member ID Guarantor Name 04/17/2024 2 [place] [facility] Jacey Escobar [id number] Jacey Escobar 04/17/2024 1 [place] [employer] Jacey Escobar [id number] Jacey Escobar OBCheryl Episode No OBEpisode recorded.
--- OUTSIDE RECORDS SUMMARY | 2024-04-18 14:51 | XMS_ITS | Data Portability ---
Author Organization SHARAD Conor Gomez [facility], [facility] [place] Address [address] [place] [address] Care Team Providers Care Knit [employer]s Press Hand Name Role Phone [facility] Primary Care Provider Assessment Encounter Date Assessment Date Assessment LastModified by Organization Details LastModified Time 05/08/2023 05/08/2023 Nature the diagnosis was discussed with the patient and family member today. At this time symptoms are most consistent with an exacerbation of her underlying patellofemoral disease. Do not see any new evidence of ligamentous or meniscal pathology. Patient has done well with conservative management in the past and recommended a repeat cortisone injection today. Also recommended a new knee brace. Prescription given. If no significant improvement would recommend repeating gel 1 injection. Patient to call for such at her convenience. [email or web address] Not available 05/08/2023 15:11:29 Plan of Treatment Reminders Order Date Submit Date Provider Last Modified By Organization Details Last Modified Time Details Appointments None record ed. Lab None record ed. Referral None record ed. Procedures None record ed. Surgeries None record ed. Imaging None record ed. Medication Orders None record ed. Patient TargetsNo targets recorded. Patient InstructionsNo instructions recorded. Reason for Referral None Reported. Results Created Date Observation Date Name Description Value Unit Range Abnormal Flag Note LastModifiedBy Organization Detail LastModifiedTime 10/06/19 24 05/14/2020 imagi ng/di agnos tic resul t No observ ation record ed. [email or web address] Not Available 09/08 20:54:52 10/06/19 24 05/14/2020 imagi ng/di agnos tic resul t No observ ation record ed. [email or web address] Not Available 09/08 20:54:57 Result Notes None recorded. Problems Name Problem SNOMED Code Status Onset Date Resolution Date Notes Provider Name and Address Organization Details Recorded Time No complaints 942482043 Active Status : 'A'; Not Available [facility] 09:21:47 Pain of left knee joint 7101958935119 07 Active 2023 elsa zacarias, [facility] 4 15:08:09 Problem Notes None recorded. Procedures Surgical History Date Name Laterality Status Provider Name and Address Organization Details Recorded Time 05/08/2023 Sports Knee 4&1 completed Jesu Goff PA-C [address] [place] [address] [address], [place], [address], [facility] [place] [facility] 05/08/2023 15:12:07 Imaging Results Imaging Date Name Status LastModified by Organiz ation Details LastModified Time 05/14/2020 imaging/diag nostic result completed Information not available 10/06/2023 20:54:52 05/14/2020 imaging/diag nostic result completed Information not available 10/06/2023 20:54:57 Procedure Notes None recorded. Medical Equipment None Reported. Allergies Allergen ID Allergen Name Allergen Category Reaction Reaction Severity Criticality Documentation Date Start Date Code Code System Note Provider Name and Address Organization Details Recorded Time 10524 Substance with sulfonami de structure and antibacte rial mechanism of action (substanc e) medicatio n Not available Not available Not available 04/10/20232020 55554 8003 SNOMED Not Available [facility] 13:52:34 66209 Product containin g penicilli n (product) medicatio n Not available Not available Not available 04/10/20232020 32243 8001 SNOMED Not Available [facility] 13:52:34 Medications Name Sig Start Date Stop Date Status Note LastModified by Organization Details LastModified Time verapamil ER (SR) 120 mg tablet,extend ed release TAKE 1 TABLET BY MOUTH EVERY EVENING WITH VERAPAMIL 240 MG EVERY MORNING TOLERATED active Not Available Not Available No t Available metformin 500 mg tablet TAKE 1 TABLET (500 MG) BY MOUTH WITH BREAKFAST AND WITH EVENING MEAL active Not Available Not Available No t Available FreeStyle Lancets 28 gauge USE 1 LANCET TWICE A DAY active Not Available Not Available No t Available spironolacton e 100 mg tablet TAKE 1 TABLET BY MOUTH TWICE A DAY active Not Available Not Available No t Available hydroxyzine pamoate 50 mg capsule TAKE 1 CAPSULE (50 MG) BY MOUTH IF NEEDED AT BEDTIME FOR ITCHING. active Not Available Not Available No t Available topiramate 25 mg tablet TAKE 2 TABLETS BY MOUTH 2 TIMES A DAY FOR MIGRAINES. STAY HYDRATED. active Not Available Not Available No t Available Vitamin B-12 500 mcg tablet TAKE 1 TABLET BY MOUTH EVERY DAY active Not Available Not Available No t Available terbinafine HCl 250 mg tablet TAKE 1 TABLET (250 MG) BY MOUTH IN THE MORNING active Not Available Not Available No t Available pravastatin 80 mg tablet TAKE 1 TABLET (80 MG) BY MOUTH IN THE MORNING active Not Available Not Available No t Available magnesium oxide 400 mg (241.3 mg magnesium) tablet TAKE 1 TABLET (400 MG TOTAL) BY MOUTH ONCE A DAY. active Not Available Not Available No t Available econazole nitrate 1 % topical cream APPLY TOPICALLY IN THE MORNING FOR 21 DAYS. active Not Available Not Available No t Available diclofenac potassium 50 mg tablet TAKE ONE TABLET TWICE DAILY active Not Available Not Available No t Available docusate sodium 100 mg capsule TAKE ONE CAPSULE TWICE DAILY FOR 10 DAYS active Not Available Not Available No t Available sertraline 25 mg tablet TAKE 1 TABLET BY MOUTH EVERY DAY IN THE MORNING active Not Available Not Available No t Available hydrocortison e 2.5 % topical cream APPLY TO AFFECTED AREA TWICE A DAY active Not Available Not Available No t Available doxycycline hyclate 100 mg tablet TAKE 1 TABLET BY MOUTH TWICE A DAY FOR 10 DAYS *LIMIT SUN EXPOSURE WHILE TAKING* active Not Available Not Available No t Available loratadine 10 mg tablet TAKE 1 TABLET BY MOUTH EVERY DAY IN THE MORNING active Not Available Not Available No t Available verapamil ER 240 mg 24 hr capsule,exten ded release TAKE 1 CAPSULE BY MOUTH EVERY DAY active Not Available Not Available No t Available aripiprazole 5 mg tablet TAKE 1 TABLET BY MOUTH EVERYDAY AT BEDTIME active Not Available Not Available N ot Available FreeStyle Lite Strips TEST BLOOD SUGAR ONCE DAILY active Not Available Not Available No t Available diclofenac 1 % topical gel APPLY 2 GRAM'S TO AFFECTED AREA(s) THREE TIMES DAILY NEEDED active Not Available Not Available No t Available cholecalcifer ol (vitamin D3) 50 mcg (2,000 unit) capsule TAKE 1 CAPSULE BY MOUTH EVERY DAY active Not Available Not Available No t Available TRUEplus Lancets 33 gauge TEST BLOOD SUGAR DAILY DIRECTED active Not Available Not Available No t Available riboflavin (vitamin B2) 400 mg tablet TAKE 1 TABLET (400 MG TOTAL) BY MOUTH ONCE A DAY. active Not Available Not Available No t Available Vitals Date Recorded Body height Body mass index (BMI) Body weight Provider Name and Address Organization Details Last Updated DateTime 05/08/2023 162.56 cm 31.4 kg/m2 26300.4 g elsa altamirano [place] [facility] [place] [facility] 05/08/2023 14:47:06 Social History None recorded. Functional Status None recorded. Mental Status None recorded. Family History Nothing Reported. Medical History No medical history recorded. Gynecological HistoryNo gynecological history recorded. Obstetrics History GPAL:G 0 P 0 0 0 0 Past Encounters Encounter ID Performer Location Encounter Start Date Encounter Closed Date Diagnosis/Indication Diagnosis SNOMED-CT Code Diagnosis ICD10 Code Diagnosis Note [id number] [facility] [place] [address] [place] [address] 05/08/2023 14:41:54 05/27/2023 15:26:46 Pain of left knee joint 7325159581 30261 M25.562 The patient is ambulatory , but has weakness and/or instabilit y of their extremity which requires stabilizat ion from this semi-rigid /rigid orthosis to improve their function.V erbal and written instructio ns for the use and applicatio n of this item were given. Patient was instructed that should the brace result in increased pain, decreased sensation, increased swelling or an overall worsening of their medical condition, to please contact our office immediatel y. Osteoarthr itis of left knee joint [id number] 08213 M17.12 You have been provided with a cortisone injection in order to reduce the pain and inflammati on that you are experienci ng. The injection consists of two medication s. Cortisone (an anti-infla mmatory that will take 48-72 hours to take effect) and Lidocaine (a numbing agent that will last 2-3 hours). Please note that not everyone will have a lasting response following the injection. PATIENT INSTRUCTIO NSOnce the Lidocaine wears off, you may have an increase in your pain. I recommend icing the affected area for 20 minutes 3-4 times per day.It is recommende d that you refrain from any high level activities using the joint or limb that was injected for approximat alexi 24-48 hours. Normal day-to-day activities are generally not a problem.PO SSIBLE SIDE EFFECTSInd ividuals with dark complexion s may experience some skin discolorat ion locally at the site of the injection. There is the possibilit y of an increase in discomfort within 48 hours following the injection. This is called a ? f lare? . To help minimize the chances of this, please see the post-injec tion instructio ns above.Ther e is a less than 1% chance of an infection. If you notice any signs of infection (redness, warmth, drainage, fever greater than 100 degrees) please call our office or contact us through the portal [facility]. Health Concerns Section Related Observation LastModified by Organization Detai ls LastModified Time None Recorded Concern Status LastModified by Organization Details LastModified Time None Recorded Advance Directives Directive None Recorded Payers Encounter Date Sequence Insurance Name Policy Number Policy Duggan Covered Member ID Duggan Member ID Guarantor Name 05/08/2023 2 [place] [facility] Jacey Escobar [id number] Jacey Escobar Notes Date Note Type Note Provider Name and Address Organization Details Recorded Time 05/08/2023 text/html I am seeing the patient today under the supervision of {{ Dr. Salmon#}} who was available but who did not see the patient. Patient comes in for evaluation of left knee pain. Has longstanding history of left knee pain dating back to 2020. Was seen by myself at that time at which time x-rays and MRI were consistent with osteoarthritis, no surgical meniscal or ligamentous lesion noted. Patient states that the last visit underwent gel 1 injection which gave her excellent relief of symptoms for a number of years. Has slowly started coming back pain discomfort mainly on the anterior aspect of that knee will radiate both superiorly and distally. Patient also notes that she is lost over 110 pounds since her last visit. Previously had knee brace which had worked well for her. There was knee brace is no longer beneficial for her. Jesu Goff PA-C [address] [facility] [address], [place], [address], [facility] [place] [facility] 05/08/2023 15:13:50 OBGyn Episode No OBEpisode recorded.
--- OUTSIDE RECORDS SUMMARY | 2024-04-18 14:51 | XMS_ITS | Encounter Summary ---
Author Organization [facility] Address [address] [place] [address] Care Team Providers Care Rn Bariatric Name Role Phone Alfreda Perez Primary Care Provider + [phone] Reason for Visit * Episode Based Medications (Routine) - Authorized Specialty Diagnoses / Procedures Referred By Frances martinez Referred To Contact Neurology Diagnoses Chronic migraine without aura with status migrainosus, not intractable Procedures PROCEDURE BOTOX [facility] [address] [place] [address] Phone: tel: fax: [facility] [address] [place] [address] Phone: tel: fax: Referral ID Status Reason Start Date Expiration Date V isits Requested Visits Authorized [id number] Authorized 04/11/2024 10/11/2025 6 6 Encounter Details Date Type Department Care Team (Late st Contact Info) Description 04/11/2024 2:00 PM EST Office Visit [facility] [address] [place] [address] Snap Attacher: Robert Macedo MD [address] [place] [address] Chronic migraine without aura without status migrainosus, not intractable (Primary Dx) Social History Tobacco Use Types Packs/Day Years Used Date Smoking Tobacco: Every Day Cigarettes Smokeless Tobacco: Never Comments:0-2 cig/day, trying hard to quit Alcohol [...] AM EDT Sexual Orientation Not on file documented as of this encounter Last Filed Vital Signs Vital Sign Reading Time Taken Comments Blood Pressure 115/76 04/11/2024 2:00 PM EST Pulse 87 04/11/2024 2:00 PM EST Temperature - - Respiratory Rate - - Oxygen Saturation - - Inhaled Oxygen Concentration - - Weight - - Height - - Body Mass Index - - documented in this encounter Progress Notes * Robert Contreras MD - 04/11/2024 3:25 PM EST SUBJECTIVE: Patient present for her second round of botox. She denies side effects to the first injections. INFORMED CONSENT: The rationale, risks, benefits, and alternatives of Botox injection for headaches were reviewed with the patient. All questions answered, consent was given, and she decided to proceed with the injections. PROCEDURAL PAUSE: Prior to starting the procedure, all pertinent records were reviewed, the nature of the procedure was explained, and a pre-procedure pause was performed. Procedural pause conducted to verify: correctpatient identity, procedure to be performed, correct patient position, special requirements, and asapplicable, correct side and site. PROCEDURE DETAILS: Botulinum toxin injection 155 units of botulinum toxin type A were injected into the following muscles: 1. 5.0 units into each manager field muscle and into the procerus muscle (15 units total). 2. 10 units into the right and left superior frontalis muscle (20 units total). 3. 20 units into the right and left temporalis muscle (40 units total). 4. 15 units into the right and left occipitalis muscle (30 units total). 5. 10 units into the right and left cervical paraspinals muscle (20 units total). 6. 15 units into the right and left trapezius muscle (30 units total). 45 units were wasted. The patient tolerated the procedure well. documented in this encounter Plan of Treatment Upcoming Encounters Date Type Department Care Team (Late st Contact Info) Description 06/04/2024 11:00 AM EDT Office Visit [facility] [address] [place] [address] Snap Attacher: Trini Stephens 07/09/2024 11:00 AM EDT Office Visit [facility] [address] [address] Snap Attacher: Trini Stephens 09/10/2024 10:00 AM EDT Follow-Up [facility] [address] [place] [address] Ayla Graff MD [address] [place] [address] documented as of this encounter Visit Diagnoses Diagnosis Chronic migraine without aura without status migrainosus, not intractable- Primary documented in this encounter Administered Medications Inactive Administered Medications - up to 3 most recent administrations Medication Order MAR Action Action Date Dose Rate Site onabotulinumtoxin A (BOTOX) injection 155 Units 155 Units, intramuscular, Once, On Margareth 04/11/24 at 1130, 1 dose, Reconstitute each vial with 0.9% sodium chloride (NS) for indication specific concentration.Indications:Glue Specialty Supervisor morris migraine without aura without status migrainosus, not intractable Given 04/11/2024 3:24 PM EST 155 Units Ot her documented in this encounter Care Teams Rn Bariatric Relationship Specialty Start Date End Date Alfreda Perez [address] [place] [address] PCP - General Internal Medicine 09/05/22 documented as of this encounter
--- OUTSIDE RECORDS SUMMARY | 2024-04-18 14:51 | XMS_ITS | Continuity of Care Document ---
Author Organization [place] - [facility], Allergy Address [address] [address] Assessment Encounter Date Assessment Date Assessment LastModified by Organization Details LastModified Time 04/03/2024 04/03/2024 Visit With: MATILDE Vaughan Use of Antihistamine s: No If yes: Vial Test Change in medications: No If yes ? ? ? Increase in asthma symptoms If yes, inhaler use: Reaction to last injections: No If yes: ? ? ? Allergy Symptoms: Other: ? ? ? Missed: 1 week Dose Repeated Aware of Vial Test Notes:? ? ? [email or web address] Not available 04/03/2024 10:48:29 Plan of Treatment Reminders Order Date Submit Date Provider Last Modified By Organization Details Last Modified Time Details Appointments [facility]- Allergy f-up 6mon 2024 10:00A M KEMI [...] Address Organization Details Recorded Time Chronic rhinitis 51289092 Active 2023 KEMI APPIAH MD [address] [address], [place], [address], [facility] 4 15:47:22 Allergic rhinitis 33667980 Active 2023 KEMI APPIAH MD [address] [address], [place], [address], [place] [facility] 4 15:47:30 Non-allergi c rhinitis [id number] Active 2023 KEMI APPIAH MD [address] [address], [place], [address], [facility] - [facility] [place] 4 15:47:30 Seasonal allergic rhinitis 691784091 Active 2023 KEMI APPIAH MD [address] [address], [place], [address], [facility] - [facility] [place] 4 15:47:30 Sensorineur al hearing loss 00908867 Active 2023 KEMI APPIAH MD 100 [facility] [place], [place], [address], [facility] - [facility] [place] 4 08:16:05 Perennial allergic rhinitis 086744243 Active 2023 JOHANA QUIROZ RN [address] [facility] [address], [place], [address], [facility] - [facility] 4 09:17:37 Problem Notes None recorded. Procedures Surgical History Date Name Laterality Status Provider Name and Address Organization Details Recorded Time 04/18/19 25 Allergy Immunotherapy Injections completed MATILDE GUAJARDO [address] [facility],[address], [address], [facility] - [facility] 04/17/2024 11:05:46 04/03/19 25 Allergy Immunotherapy Injections completed FER ROBLES Maria Alejandra [address], [address], [facility] - [facility] [place] 04/03/2024 10:48:10 03/20/19 25 Allergy Immunotherapy Injections completed MATILDE GUAJARDO [address] [facility], [address], [facility] - [facility] [place] 03/20/2024 10:20:13 03/13/19 25 Allergy Immunotherapy Injections completed FER ROBLES Maria Alejandra [address] [facility],[address], [address], [place] - [facility] 03/13/2024 14:13:16 03/06/19 25 Allergy Immunotherapy Injections completed FERNANDO ESPINOZA RMA [address], [place], [address], [place] [facility] 03/06/2024 10:20:35 03/01/19 25 Allergy Immunotherapy Injections completed FERNANDO ESPINOZA RMA [address], [place], [address], [place] [facility] 03/01/2024 14:10:10 02/22/19 25 Allergy Immunotherapy Injections completed FERNANDO ESPINOZA RMA [address], [place], [address], [place] [facility] 02/23/2024 11:02:27 02/15/19 25 Allergy Immunotherapy Injections completed FER ROBLES, RMA [address],[place] [address] [place] [address], [address], [place] [facility] 02/16/2024 10:02:17 02/07/19 25 Allergy Immunotherapy Injections completed FER ROBLES RMA [address], [place], [address], [place] [facility] 02/09/2024 09:17:33 01/26/20 24 Allergy Immunotherapy Injections completed FERNANDO ESPINOZA RMA [address],[place] [address] [place] [address], [address], [place] [facility] 01/26/2024 12:14:37 01/19/20 24 Allergy Immunotherapy Injections completed FER ROBLES, RMA [address], [place], [address], [place] [facility] 01/19/2024 11:12:55 01/09/20 24 Allergy Immunotherapy Injections completed JOHANA QUIROZ RN [address],[place] [address] [place] [address], [address], [place] [facility] 01/09/2024 10:57:12 01/03/20 24 Allergy Immunotherapy Injections completed FER PEARCEC, RMA [address], [place], [address], [facility] - [facility] 01/03/2024 14:45:14 12/27/19 24 Allergy Immunotherapy Injections completed FER ROBLES [facility] [place] [address] [place] [address], [address], [facility] - [facility] 12/27/2023 10:01:11 12/20/19 24 Allergy Immunotherapy Injections completed FER ROBLES [facility] 100 [facility] [place] [address], [place], [address], [facility] - [facility] 12/20/2023 15:54:24 12/14/19 24 Allergy Immunotherapy Injections completed JOHANA QUIROZ RN 100 [facility] [place],[address], [address], [facility] - [facility] 12/14/2023 10:20:40 12/07/19 24 Allergy Immunotherapy Injections completed FER ROBLES [facility] 100 [facility] [place],[address], [address], [facility] - [facility] 12/07/2023 11:39:29 12/01/19 24 Allergy Immunotherapy Injections completed JOHANA QUIROZ RN [address] [facility],[address], [address], [facility] - [facility] 12/01/2023 10:41:51 11/20/19 24 Allergy Immunotherapy Injections completed JOHANA QUIROZ RN 100 [facility] [place] [address] [place] [address], [address], [facility] - [facility] 11/20/2023 09:39:10 09/26/19 24 Allergy Testing-Full completed MATILDE GUAJARDO [facility] [place] [address] [place] [address], [address], [facility] - [facility] 09/26/2023 15:15:09 09/19/19 Allergy Testing Modified- Quantitative Testing (MQT) Only completed MATILDE GUAJARDO [address] [facility] [address], [place], [address], [facility] - [facility] 09/19/2023 11:21:03 Imaging Results None recorded. Procedure Notes None recorded. Medical Equipment None Reported. Allergies Allergen ID Allergen Name Allergen Category Reaction Reaction Severity Criticality Documentation Date Start Date Code Code System Note Provider Name and Address Organization Details Recorded Time 590233 Product containin g penicilli n (product) medicatio n Not available Not available Not available 08/24/2023 17030 8001 SNOMED Judith Lemus SHARAD zacarias - [facility] 4 15:09:43 410294 Substance with sulfonami de structure and antibacte rial mechanism of action (substanc e) medicatio n Not available Not available Not available 08/24/2023 27220 8003 SNOMED Judith Lemus SHARAD zacarias - [facility] 4 15:09:50 Medications Name Sig Start Date [...] (250 MG) BY MOUTH IN THE MORNING 08/13 /2024 completed Not Available Not Available Not Available [...] SNOMED-CT Code Diagnosis ICD10 Code Diagnosis Note [id number] FERNANDO ESPINOZA A Allergy [address] [place] [address] 03/06/2024 10:02:26 03/06/2024 10:28:51 Perennial allergic rhinitis 472173792 J30.89 18462 [facility] [address] [place] [address] 03/13/2024 13:59:53 03/13/2024 14:13:42 Perennial allergic rhinitis 838193192 J30.89 29669 FERNANDO ESPINOZA [facility] Allergy [address] [place] [address] 03/20/2024 09:47:00 03/20/2024 10:21:14 Perennial allergic rhinitis 426721663 J30.89 71825 [facility] [address] [place] [address] 04/03/2024 10:01:54 04/03/2024 10:48:48 Perennial allergic rhinitis 739997198 J30.89 Health Concerns Section Related Observation LastModified by Organization Detai ls LastModified Time None Recorded Concern Status LastModified by Organization Details LastModified Time None Recorded Payers Encounter Date Sequence Insurance Name Policy Number Policy Duggan Covered Member ID Duggan Member ID Guarantor Name 04/03/2024 2 [place] [facility] Jacey Escobar [id number] Jacey Escobar 04/03/2024 1 MEDICARE B-[place]: [facility] Jacey Escobar [id number] Jacey Escobar OBGyn Episode No OBEpisode recorded.
--- OUTSIDE RECORDS SUMMARY | 2024-04-18 14:51 | XMS_ITS | Encounter Summary ---
Author Organization [employer] [facility] Address [address] [place] [address] Care Team Providers Care Third Hand Name Role Phone Alfreda Perez MD Primary Care Provider [phone]- [phone] Encounter Details Date Type Department Care Team (Late st Contact Info) Description 10/03/2022 Orders Only [facility] & [facility]EDS [address] [place] [address] Jacey Rodriguez LPN Social History Tobacco Use Types Packs/Day Years Used Date Smoking Tobacco: Every Day Cigarettes 0.3 33.2 Started: 02/06/1991 Passive Smoke Exposure: Current Smokeless Tobacco: Never Depression Answer Date Recorded Patient Health Questionnaire-9 Score 10 06/02/2022 Depression Answer Date Recorded Patient Health Questionnaire-2 Score 4 06/02/2022 Comments Unknown Sex and Gender Information Value Date Recorded Sex Assigned at Female 12/06/2021 10:20 AM EDT Legal Sex Female 10:20 AM EDT Gender Identity Female 04/24/2023 11:18 PM EDT Sexual Orientation Choose not to disclose 2023 11:19 PM EDT Sexual Orientation Straight 04/24/2023 11 :19 PM EDT documented as of this encounter Plan of Treatment Upcoming Encounters Date Type Department Care Team (Late Contact Info) Description 07/29/2024 10:00 AM EDT Office Visit [facility] [address] [place] [address] Alfreda Perez MD [address] [place], [place] [phone] documented as of this encounter Visit Diagnoses Not on filedocumented in this encounter Additional Health Concerns Assessment Noted Time PHQ-9 Depression Total Score: 10 023 8:58 AM EDT documented as of this encounter Care Teams Third Hand Relationship Specialty Start Date End Date Alfreda Perez MD [address] [place] [address] PCP - General Internal Medicine 01/16/19 Valerie Ram Computer Application DeveloperRailroad Shop Inspector 10/18/23 documented as of this encounter
--- OUTSIDE RECORDS SUMMARY | 2024-04-18 14:51 | XMS_ITS | Encounter Summary ---
Author Organization [employer] Address [address] [place] [address] Care Team Providers Care Team Leader/Research Psychologist Name Role Phone Alfreda Perez MD Primary Care Provider [phone]- [phone] Reason for Visit * Reason Onset Date Comments Med Refill 02/24/2022 Encounter Details Date Type Department Care Team (Late st Contact Info) Description 02/24/2022 Refill [facility] [address] [place] [address] Alfreda Perez MD [address] [place], [place] [phone] Cervicogenic headache (Primary Dx); Itchy eyes Social History Tobacco Use Types Packs/Day Years [...] PM EDT documented as of this encounter Miscellaneous Notes * Telephone Encounter - Jesu Reid - 02/24/2022 9:45 AM EST Tc from pt requesting med refill. Pt states medication refill must be a 90 day supply per insurance ( Loratadine 10 mg ) ( diclofenac potasium 50 mg ) documented in this encounter Plan of Treatment Upcoming Encounters Date Type Department Care Team (Late st Contact Info) Description 07/29/2024 10:00 AM EDT Office Visit [facility]EDS [address] [place] [address] Alfreda Perez MD [address] [place] [address] documented as of this encounter Visit Diagnoses Diagnosis Cervicogenic headache- Primary Headache Itchy eyes Other ill-defined disorder of eye documented in this encounter Care Teams Team Leader/Research Psychologist Relationship Specialty Start Date End Date Alfreda Perez MD [address] [place] [address] PCP - General Internal Medicine 01/16/19 Valerie Ram Front AttendantMaterials Supervisor 10/18/23 documented as of this encounter
--- OUTSIDE RECORDS SUMMARY | 2024-04-18 14:51 | XMS_ITS | Clinical Summary ---
Author Organization [facility] Address [address] [place] [address] Care Team Providers Care Food And Beverage Associate Name Role Phone Alfreda Perez MD Primary Care Provider +1 -[phone] Social History Tobacco Use Types Packs/Day Years Used Date Smoking Tobacco: Never Assessed Comments Unknown Sex and Gender Information Value Date Recorded Sex Assigned at Not on file Legal Sex Female 11:51 PM EST Gender Identity Not on file Sexual Orientation Not on file Last Filed Vital Signs Vital Sign Reading Time Taken Comments Blood Pressure - - Pulse - - Temperature - - Respiratory Rate - - Oxygen Saturation - - Inhaled Oxygen Concentration - - Weight 97.5 kg (215 lb) 06/21/2023 1:42 PM EDT Height 167.6 cm (5' 6 ) 06/21/2023 1:42 PM EDT Body Mass Index 34.7 06/21/2023 1:42 PM EDT Plan of Treatment Health Maintenance Due Date Last Done Comments Breast Cancer Screening 1979 DTaP,Tdap,and Td Vaccines (1 - Tdap) 1998 Hepatitis B Vaccines (1 of 3 - 19+ 3-dose series) 1998 Pneumococcal Vaccine: Pediat rics (0 to 5 Years) and At-Risk Patients (6 to 64 Years) (1 of 2 - PCV) 1998 Cervical Cancer Screening: P ap Smear 01/15/2000 COVID-19 Vaccine ( - 2023-2 5 season) 2023 Influenza Vaccine (#1) 2023 Cholesterol Screening (Lipid Panel) 01/02/2024 Colorectal Cancer Screening: Colonoscopy 01/02/2024 Depression Screening 01/02/2024 HIV Screening 01/02/2024 Hepatitis C Screening 01/02/2024 Social Influencers of Health Screening 01/02/2024 HIB Vaccines Aged Out No longer eligi ble based on patient's age to complete this topic HPV Vaccines Aged Out No longer eligi ble based on patient's age to complete this topic Hepatitis A Vaccines Aged Out No long er eligible based on patient's age to complete this topic IPV Vaccines Aged Out No longer eligi ble based on patient's age to complete this topic MMR Vaccines Aged Out No longer eligi ble based on patient's age to complete this topic Meningococcal ACWY Vaccine Aged Out N o longer eligible based on patient's age to complete this topic Meningococcal B Vacine Aged Out No lo nger eligible based on patient's age to complete this topic RSV Immunization Patients Un zelda 20 months Aged Out No longer eligible b ased on patient's age to complete this topic Varicella Vaccines Aged Out No longer eligible based on patient's age to complete this topic Care Teams Food And Beverage Associate Relationship Specialty Start Date End Date Alfreda Perez MD [address] [place] [address] PCP - General 04/26/23
--- OUTSIDE RECORDS SUMMARY | 2024-04-18 14:51 | XMS_ITS | Encounter Summary ---
Author Organization [employer] Address [address] [place] [address] Care Team Providers Care Pole Framer Machine Name Role Phone Alfreda Perez MD Primary Care Provider +1- [phone] Reason for Referral * Cardiac Stress Testing (Routine) - Closed Specialty Diagnoses / Procedures Referred By Contac t Referred To Contact Cardiology Diagnoses Palpitation Procedures Holter monitor - 48 hour Alfreda Perez MD [address] [place] [address] Phone: tel: fax: [address] Phone: tel: fax: Referral ID Status Reason Start Date Expiration Date Visits Re quested Visits Authorized [id number] Closed 06/10/2022 12/07/2022 1 1 Encounter Details Date Type Department Care Team (Late st Contact Info) Description 06/10/2022 Orders Only [facility] [address] [place], [place] [phone] Alfreda Perez MD [address] [place] [address] Palpitation (Primary Dx) Social History Tobacco Use Types [...] Description 07/29/2024 10:00 AM EDT Office Visit [facility] [address] [place] [address] Alfreda Perez MD [address] [place] [address] Scheduled Orders Name Type Priority Associated Diagnoses Orde r Schedule Holter monitor - 48 hour Cardiac Services Routine Palpitation Expected: 06/10/2022 (Approximate), Expires: 06/10/2024 documented as of this encounter Visit Diagnoses Diagnosis Palpitation- Primary Palpitations documented in this encounter Additional Health Concerns Assessment Noted Time PHQ-9 Depression Total Score: 10 023 8:58 AM EDT documented as of this encounter Care Teams Pole Framer Machine Relationship Specialty Start Date End Date Alfreda Perez MD [address] [place] [address] PCP - General Internal Medicine 01/16/19 Valerie Ram Gambling Floor SupervisorSupervisor Billposting 10/18/23 documented as of this encounter
--- OUTSIDE RECORDS SUMMARY | 2024-04-18 14:51 | XMS_ITS | Encounter Summary ---
Author Organization [employer] Address [address] [place] [address] Care Team Providers Care Spring Tier Name Role Phone Alfreda Perez MD Primary Care Provider +1- [phone] Encounter Details Date Type Department Care Team (Late st Contact Info) Description 05/02/2022 Orders Only [facility] [address] [place], [place] [phone] Jacey Rodriguez LPN Social History Tobacco Use Types Packs/Day Years Used Date Smoking Tobacco: Every Day Cigarettes 0.3 33.2 Started: 02/06/1991 Passive Smoke Exposure: Current Smokeless Tobacco: Never Comments Unknown Sex and Gender Information Value Date Recorded Sex Assigned at Female 12/06/2021 10:20 AM EDT Legal Sex Female 10:20 AM EDT Gender Identity Female 04/24/2023 11:18 PM EDT Sexual Orientation Choose not to disclose 2023 11:19 PM EDT Sexual Orientation Straight 04/24/2023 11 :19 PM EDT COVID-19 Exposure Response Date Recorded In the last 10 days, have yo u been in contact with someone who was confirmed or suspected to have Coronavirus/COVID-19? No / Unsure 04/07/2022 11:28 AM EST documented as of this encounter Plan of Treatment Upcoming Encounters Date Type Department Care Team (Late Contact Info) Description 07/29/2024 10:00 AM EDT Office Visit [facility] [address] [place], [place] [phone] Alfreda Perez MD [address] [place] [address] documented as of this encounter Visit Diagnoses Not on filedocumented in this encounter Care Teams Spring Tier Relationship Specialty Start Date End Date Alfreda Perez MD [address] [place] [address] PCP - General Internal Medicine 01/16/19 Valerie Ram Prompt Care RnVeterinary Pathologist 10/18/23 documented as of this encounter
--- OUTSIDE RECORDS SUMMARY | 2024-04-18 14:51 | XMS_ITS | Referral Summary ---
Author Organization [facility] Address [address] [place] [address] Care Team Providers Care Printed Circuit Boards Router Name Role Phone Alfreda Perez Primary Care Provider [phone] Encounters Date Type Department Care Team Description 04/11/2024 2:00 PM EST Office Visit [facility] [address] [place] [address] Industrial Sewer: Robert Macedo MD Chronic migraine without aura without status migrainosus, not intractable (Primary Dx) 01/25/2024 Orders [address] [facility] Neurology [address] [place] [address] Ayla Graff MD 01/25/[address] [facility] Neurology [address] [place] [address] Tamiko Whitten CCMA Med Refill from Last 3 Months Allergies Active Allergy Reactions Criticality Noted Date [...] hours as needed for headache. 90 tablet 3 Active lamoTRIgine (LaMICtal) 25 mg tablet Taking 50 mg once a day. 4 Active IPRATROPIUM BROMIDE NASAL Administer 21 mcg into affected nostril(s). Active topiramate (TOPAMAX) 100 mg tablet Take 1 tablet (100 mg total) by mouth once a day. 30 tablet 4 Active magnesium oxide (MAG-OX) 400 mg (241.3 mg mag) tablet Take 1 tablet (400 mg total) by mouth 2 times a day. 30 tablet 4 Active magnesium oxide (MAG-OX) 400 mg (241.3 mg mag) tablet Take 1 tablet (400 mg total) by mouth 2 (two) times a day. 60 tablet 4 Active verapamil SR (CALAN SR) 120 mg tablet TAKE 1 TABLET BY MOUTH EVERY EVENING WITH VERAPAMIL 240 MG EVERY MORNING TOLERATED 90 tablet 4 Active cholecalciferol (VITAMIN D3) 2,000 unit capsule TAKE 1 CAPSULE BY MOUTH EVERY DAY 90 capsule 4 Active cyanocobalamin (vitamin B-12) 500 mcg [...] 120 mg in the evening 90 tablet 11 4 Active Active Problems Problem Noted Date Diagnosed Date Headache, chronic migraine without aura 10/24/19 24 Vitamin B12 deficiency 01/01/2023 Vitamin D deficiency 01/01/2023 Right-sided nontraumatic intracerebral hemorrhag e 12/21/2022 Cognitive impairment 12/21/2022 Chronic migraine without aur a with status migrainosus, not intractable 12/21/2022 Cocaine abuse in remission ([facility]) 12/21/2022 Alcoholism in remission ([facility]) 12/21/2022 Overview (12/21/2022): still has 2-3 drinks [...] 30.9 in adult 12/21/2022 Chiari I malformation ([facility]) 12/21/2022 Social History Tobacco Use Types Packs/Day Years [...] Description 06/04/2024 11:00 AM EDT Office Visit [facility] [address] [place] [phone] Industrial Sewer: Trini Stephens 07/09/2024 11:00 AM EDT Office Visit [facility] [address] [place] [address] Industrial Sewer: Trini Stephens 09/10/2024 10:00 AM EDT Follow-Up [facility] Neurology [address] [place] [address] Ayla Graff MD [address] [place] [address] Procedures * Due to [facility] law, this organization might not be sharing negative HIV tests. Procedure Name Priority Date/Time Associated Diagnosis Comments COMPREHENSIVE METABOLIC PANEL Routine 12/21/2022 1:11 PM EST Cognitive impairment from Last 3 Months or Most Recently Relevant to Health Maintenance Results * Due to [facility] law, this organization might not be sharing negative HIV tests. * (ABNORMAL) Comprehensive Metabolic Panel (12/21/2022 1:11 PM EST) NA 137 135 - 145 mmol/L 12/21/2022 2:09 PM EST [facility] K 3.9 3.5 - 5.3 mmol/L 12/21/2022 2:09 PM EST [facility] Cl 108 97 - 110 mmol/L 12/21/2022 2:09 PM [facility] CO2 21(L) 24 - 32 mmol/L 12/21/2022 2:09 PM [facility] Anion Gap 8 5 - 15 12/21/2022 2:09 PM [facility] Glucose 92 70 - 99 mg/dL 12/21/2022 2:09 PM [facility] Creatinine 0.60 0.50 - 1.20 mg/dL 12/21/2022 2:09 PM [facility] Calcium 9.2 8.7 - 10.7 mg/dL 12/21/2022 2:09 PM [facility] Total Protein 7.3 6.0 - 8.0 g/dL 12/21/2022 2:09 PM [facility] Albumin 4.6 3.5 - 4.8 g/dL 12/21/2022 2:09 PM [facility] Bilirubin, Total 0.4 0.3 - 1.2 mg/dL 12/21/2022 2:09 PM [facility] Alkaline Phosphatase 66 30 - 115 U/L 12/21/2022 2:09 PM [facility] AST 10 10 - 40 U/L 12/21/2022 2:09 PM [facility] ALT 8(L) 10 - 40 U/L 12/21/2022 2:09 PM [facility] BUN 13 7 - 23 mg/dL 12/21/2022 2:09 PM [facility] eGFR >90 >=60 mL/min/1. 73m2 12/21/2022 2:09 PM [facility] Comment:The estimated glomer ular filtration rate (eGFR) is calculated using a new formula developed by the NKF-ASN task force to eliminate race-based correction factors. The new formula uses serum/plasma creatinine, age, and gender to determine eGFR. A value below 60mls/min might indicate kidney disease and will be flagged. For additional information, see Krishna et al, Am J Kidney Dis. 2021;79(2):268- 288, A Unifying Approach for GFR estimation: Recommendations of the NKF-ASN Task Force on Reassessing the Inclusion of Race in Diagnosing Kidney Disease . Blood Structure of peripheral vein / Unknown Venipuncture / Unknown 12/21/2022 1:11 PM EST 12/21/2022 1:23 PM EST us Ayla Graff MD LAB BLOOD ORDERABLES Fi nal Result [facility] [address] [place] [address], [place] from Last 3 Months or Most Recently Relevant to Health Maintenance Insurance [facility] MEDICARE Care Teams Printed Circuit Boards Router Relationship Specialty Start Date End Date Alfreda Perez [address] [place] [address] PCP - General Internal Medicine 09/05/22
--- OUTSIDE RECORDS SUMMARY | 2024-04-18 14:51 | XMS_ITS | Continuity of Care Document ---
Author Organization [place] [facility] Allergy Address [address] [place] [phone] Assessment Encounter Date Assessment Date Assessment LastModified by Organization Details LastModified Time 03/20/2024 03/20/2024 Visit With: Nikki Barnes Use of Antihistamine s: No If yes: Vial Test Change in medications: No If yes ? ? ? Increase in asthma symptoms If yes, inhaler use: Reaction to last injections: No If yes: ? ? ? Allergy Symptoms: Other: ? ? ? Missed: Dose Repeated Aware of Vial Test Notes:? ? ?pt thinks she might have a sinus infection, dose was repeated [id number] Not available 03/20/2024 10:21:00 Plan of Treatment Reminders Order Date Submit Date Provider Last Modified By Organization Details Last Modified Time Details Appointments [facility]- Allergy f-up 6mon 2024 10:00A M [...] Address Organization Details Recorded Time Chronic rhinitis 94063641 Active 2023 KEMI APPIAH MD [address] [place] [address], [place], [address] [facility] [place] [facility] 4 15:47:22 Allergic rhinitis 35990709 Active 2023 KEMI APPIAH MD [address] [address], [place], [address], [facility] - [facility] 4 15:47:30 Non-allergi c rhinitis [id number] Active 2023 KEMI APPIAH MD [address] [facility], [address] [facility], [place], [address], [facility] - [facility] 4 15:47:30 Seasonal allergic rhinitis 948397196 Active 2023 KEMI APPIAH MD [address] [facility], [address] [facility], [place], [address], [facility] - [facility] 4 15:47:30 Sensorineur al hearing loss 06638341 Active 2023 KEMI APPIAH MD [address] [facility], [address] [facility], [place], [address], [place] - [facility] 4 08:16:05 Perennial allergic rhinitis 303585224 Active 2023 JOHANA QUIROZ RN [address] [facility], [address] [facility], [place], [address], [facility] - [facility] 4 09:17:37 Problem Notes None recorded. Procedures Surgical History Date Name Laterality Status Provider Name and Address Organization Details Recorded Time 04/18/19 25 Allergy Immunotherapy Injections completed MATILDE GUAJARDO [address] [facility],[address], [address], [facility] - [facility] 04/17/2024 11:05:46 04/03/19 25 Allergy Immunotherapy Injections completed MATILDE GARCIA [facility],[address], [address], [facility] - [facility] 04/03/2024 10:48:10 03/20/19 25 Allergy Immunotherapy Injections completed MATILDE GUAJARDO [address] [facility] [place] [address] [place] [address], [address], [facility] - [facility] 03/20/2024 10:20:13 03/13/19 25 Allergy Immunotherapy Injections completed MATILDE GARCIA [address] [facility] [place] [address] [place] [address], [address], [place] [facility] 03/13/2024 14:13:16 03/06/19 25 Allergy Immunotherapy Injections completed ELIER GUAJARDOA [address], [place], [address], [place] [facility] 03/06/2024 10:20:35 03/01/19 25 Allergy Immunotherapy Injections completed NIKKI BARNES RMA [address], [place], [address], [place] [facility] 03/01/2024 14:10:10 02/22/19 25 Allergy Immunotherapy Injections completed NIKKI BARNES RMA [address] [address], [place], [address], [place] [facility] 02/23/2024 11:02:27 02/15/19 25 Allergy Immunotherapy Injections completed FER ROBLES, RMA [address] [address], [place], [address], [place] [facility] 02/16/2024 10:02:17 02/07/19 25 Allergy Immunotherapy Injections completed FER ROBLES RMA [address], [place], [address], [place] [facility] 02/09/2024 09:17:33 01/26/20 24 Allergy Immunotherapy Injections completed NIKKI BARNES RMA [address] [address], [place], [address], [place] [facility] 01/26/2024 12:14:37 01/19/20 24 Allergy Immunotherapy Injections completed FER ROBLES, RMA [address], [place], [address], [place] [facility] 01/19/2024 11:12:55 01/09/20 24 Allergy Immunotherapy Injections completed JOHANA QUIROZ RN [address] [address], [place], [address], [place] [facility] 01/09/2024 10:57:12 01/03/20 24 Allergy Immunotherapy Injections completed FER PEARCEC, RMA [address], [place], [address], [facility] - [facility] 01/03/2024 14:45:14 12/27/19 24 Allergy Immunotherapy Injections completed FER ROBLES, RMA [address] [facility] [address] [address], [place], [address], [facility] - [facility] 12/27/2023 10:01:11 12/20/19 24 Allergy Immunotherapy Injections completed FER ROBLES, RMA [address] [facility] [place] [address], [place], [address], [facility] - [facility] 12/20/2023 15:54:24 12/14/19 24 Allergy Immunotherapy Injections completed JOHANA QUIROZ RN 100 [facility],[address], [address], [facility] - [facility] 12/14/2023 10:20:40 12/07/19 24 Allergy Immunotherapy Injections completed FER ROBLES [facility] [address] [facility] [place],[address], [address], [facility] - [facility] 12/07/2023 11:39:29 12/01/19 24 Allergy Immunotherapy Injections completed JOHANA QUIROZ RN 100 [facility],[address], [address], [facility] - [facility] 12/01/2023 10:41:51 11/20/19 24 Allergy Immunotherapy Injections completed JOHANA QUIROZ RN [address] [facility],[address], [address], [facility] - [facility] 11/20/2023 09:39:10 09/26/19 24 Allergy Testing-Full completed AMTILDE GUAJARDO [address] [facility] [place] [facility], [place], [address], [facility] - [facility] 09/26/2023 15:15:09 09/19/19 24 Allergy Testing Modified- Quantitative Testing (MQT) Only completed MATILDE GUAJARDO [address] [facility] [address] [address], [place], [address], [place] [facility] 09/19/2023 11:21:03 Imaging Results None recorded. Procedure Notes None recorded. Medical Equipment None Reported. Allergies Allergen ID Allergen Name Allergen Category Reaction Reaction Severity Criticality Documentation Date Start Date Code Code System Note Provider Name and Address Organization Details Recorded Time 488385 Product containin g penicilli n (product) medicatio n Not available Not available Not available 08/24/2023 72861 8001 SNOMED Judith Fontaineanirudh zacarias [place] - [facility] 15:09:43 979050 Substance with sulfonami de structure and antibacte rial mechanism of action (substanc e) medicatio n Not available Not available Not available 08/24/2023 88794 8003 SNOMED Judith Fontaineanirudh zacarias [facility] 4 15:09:50 Medications Name Sig Start [...] SNOMED-CT Code Diagnosis ICD10 Code Diagnosis Note [id number] NIKKI BARNES [facility] Allergy [address] [place] [address] [address] [place] [address] 02/23/2024 10:46:24 02/23/2024 11:02:59 Perennial allergic rhinitis 862131297 J30.89 67839 NIKKI BARNES [facility] [address] [place] [address] [address] [place] [address] 03/01/2024 13:47:03 03/01/2024 14:10:43 Perennial allergic rhinitis 604240583 J30.89 99239 NIKKI BARNES [facility] [address] [place] [address] [address] [place] [address] 03/06/2024 10:02:26 03/06/2024 10:28:51 Perennial allergic rhinitis 150536774 J30.89 [address]216 [facility] All[facility] 100 [facility] it [address] [place] [address] 03/13/2024 13:59:53 03/13/2024 14:13:42 Perennial allergic rhinitis 046446286 J30.89 25603 NIKKI BARNES [facility] 100 [facility] [address] [place] [address] 03/20/2024 09:47:00 03/20/2024 10:21:14 Perennial allergic rhinitis 458374834 J30.89 Health Concerns Section Related Observation LastModified by Organization Detai ls LastModified Time None Recorded Concern Status LastModified by Organization Details LastModified Time None Recorded Payers Encounter Date Sequence Insurance Name Policy Number Policy Duggan Covered Member ID Duggan Member ID Guarantor Name 03/20/2024 2 [place] [facility] Jacey Escobar [id number] Jacey Escobar 03/20/2024 1 [place] B[place] [employer] Jacey Escobar [id number] Jacey Escobar OBGyn Episode No OBEpisode recorded.
--- OUTSIDE RECORDS SUMMARY | 2024-04-18 14:51 | XMS_ITS | Encounter Summary ---
Author Organization [employer] Address [address] [place] [address] [place] [address] Care Team Providers Care Manager Filter Name Role Phone Alfreda Perez MD Primary Care Provider [phone] Reason for Visit * Reason Comments Med Refill Encounter Details Date Type Department Care Team ([facility] st Contact Info) Description 12/22/[address] [facility] [address] [place] [address] Alfreda Perez MD [address] [place] [address] Hidradenitis suppurativa Social History Tobacco Use Types Packs/Day Years Used Date Smoking Tobacco: Every Day Cigarettes 0.3 33.2 Started: 02/06/1991 Passive Smoke Exposure: Current Smokeless Tobacco: Never Depression Answer Date Recorded Patient Health Questionnaire-9 Score 13 04/25/2023 Patient Health Questionnaire-9 Score 13 04/25/2023 Last PHQ-9: Questionnaire Data Not on file 0 04/25/2023 Housing Stability Answer Date Recorded What is your housing situation today? I have lorenzo echeverria 11/25/[address] you li ve. Do you have problems with any of the following? None of the above 11/25/2022 Food Insecurity Answer Date Recorded Within the past 12 months, y ou worried that your food would run out before you got money to buy more: Never True 11/25/2022 Within the past 12 months,th e food you bought just didn't last and you didn't have enough money to get more: Never True Transportation Answer Date Recorded In the past 12 months, has l ack of transportation kept you from medical appts, meetings, work or from getting things needed for daily living? No 11/25/2022 Utilities Answer Date Recorded In the past 12 months, has t he electric, gas, oil or water company threatened to shut off services in your home? No 11/25/2022 Depression Answer Date Recorded Patient Health Questionnaire-2 Score 2 04/25/2023 Comments Unknown Sex and Gender Information Value [...] Description 07/29/2024 10:00 AM EDT Office Visit [facility] [address] [place] [address] Alfreda Perez MD [address] [place] [address] documented as of this encounter Visit Diagnoses Diagnosis Hidradenitis suppurativa Hidradenitis documented in this encounter Additional Health Concerns Assessment Noted Time PHQ-9 Depression Total Score: 13 024 9:44 AM EDT documented as of this encounter Care Teams Manager Filter Relationship Specialty Start Date End Date Alfreda Perez MD [address] [place] [address] PCP - General Internal Medicine 01/16/19 Valerie Ram Mold CapperHolter Technician 10/18/23 documented as of this encounter
--- OUTSIDE RECORDS SUMMARY | 2024-04-18 14:52 | XMS_ITS | Encounter Summary ---
Author Organization [employer] Address [address] [place] [address] [place] [address] Care Team Providers Care Rag Inspector Name Role Phone Alfreda Perez MD Primary Care Provider [phone]- [phone] Reason for Visit * Reason Comments Med Refill Encounter Details Date Type Department Care Team ([facility] st Contact Info) Description 03/17/2024 Refill [facility] [address] [place] [address] Alfreda Perez MD [address] [place] [address] Hypercholesterolemia; Hidradenitis suppurativa Social History Tobacco Use Types [...] 10:00 AM EDT Office Visit [facility] [address] [place] [address] Alfreda Perez MD [address] [place] [address] documented as of this encounter Visit Diagnoses Diagnosis Hypercholesterolemia Pure hypercholesterolemia Hidradenitis suppurativa Hidradenitis documented in this encounter Additional Health Concerns Assessment Noted Time PHQ-9 Depression Total Score: 13 024 9:44 AM EDT documented as of this encounter Care Teams Rag Inspector Relationship Specialty Start Date End Date Alfreda Perez MD [address] [place] [address] PCP - General Internal Medicine 01/16/19 Valerie Ram Deburring And Tooling Machine OperatorPastoral Counselor 10/18/23 documented as of this encounter
--- OUTSIDE RECORDS SUMMARY | 2024-04-18 14:52 | XMS_ITS | Encounter Summary ---
Author Organization [employer] Address [address] [place] [address] [facility] [place] [address] Care Team Providers Care Financial Developer Name Role Phone Alfreda Perez MD Primary Care Provider [phone] Encounter Details Date Type Department Care Team ([facility] st Contact Info) Description 04/18/2024 10:45 AM EDT Office Visit [facility] [address], [place] [phone] Alfreda Perez MD [address] [place] [address] Type 2 diabetes mellitus with hyperglycemia, without long-term current use of insulin ([facility]) (Primary Dx); Screening for colon cancer; Annual physical exam; Cervicogenic headache; Encounter for immunization; Dietary counseling; Exercise counseling; Class 1 obesity due to excess calories with serious comorbidity and body mass index (BMI) of 33.0 to 33.9 in adult; Smoking Social History Tobacco Use Types Packs/Day Years Used Date Smoking Tobacco: Every Day Cigarettes 0.3 33.2 Started: 02/06/1991 Passive Smoke Exposure: Current Smokeless Tobacco: Never Depression Answer Date Recorded Patient Health Questionnaire-9 Score 8 04/18/2024 Patient Health Questionnaire-9 Score 8 04/18/2024 Last PHQ-9: Questionnaire Data Not on file 0 04/18/2024 Housing Stability Answer Date Recorded What is your housing situation today? I have lorenzo sing 04/18/[address] you li ve. Do you have problems with any of the following? Oven or stove not working 04/18/2024 Food Insecurity Answer Date Recorded Within the [...] Answer Date Recorded Patient Health Questionnaire-2 Score 1 04/18/2024 Internet Access Answer Date Recorded Internet Access Q1 Yes 04/11/2024 Internet Access Q2 Not on file 04/11/2024 Comments Unknown Sex and Gender Information Value Date Recorded Sex Assigned at Female 12/06/2021 10:20 AM EDT Legal Sex Female 10:20 AM EDT Gender Identity Female 04/24/2023 11:18 PM EDT Sexual Orientation Choose not to disclose 2023 11:19 PM EDT Sexual Orientation Straight 04/24/2023 11 :19 PM EDT documented as of this encounter Last Filed Vital Signs Vital Sign Reading Time Taken Comments Blood Pressure 125/76 04/18/2024 10:44 AM EDT Pulse 93 04/18/2024 10:44 AM EDT Temperature 36.7 ??C (98 ??F) 04/18/2024 10:44 AM EDT Respiratory Rate 20 04/18/2024 10:44 AM EDT Oxygen Saturation 98% 04/18/2024 10:44 AM EDT Inhaled Oxygen Concentration - - Weight 88 kg (194 lb) 04/18/2024 10:44 AM EDT Height 162.6 cm (5' 4 ) 04/18/2024 10:44 AM EDT Body Mass Index 33.3 04/18/2024 10:44 AM EDT documented in this encounter Progress Notes * Alfreda Perez MD - 04/18/2024 10:45 AM EDT Subjective Patient ID: Isis Escobar is a 44 y.o. female who presents for No chief complaint on file.. HPI Patient is here for annual physical exam. She feels overall well. Only complains of neck pain and muscle spasms of the neck Patient Active Problem List Diagnosis Anxiety disorder Backache Chiari malformation type I (CMS/HCC) Type 2 diabetes mellitus (CMS/HCC) Cervicogenic headache Allergies Allergen Reactions Cat Dander Other Reaction(s): itchy eyes and sneezing Dog Epithelium Other Reaction(s): itchy eyes and sneezing Horse-Derived Products Other Reaction(s): itchy eyes and sneezing Penicillin V Hives Penicillins Hives Pollen Extract Other Reaction(s): trees, grasses and martinez allergy-watery eyes, sneezing, coughing Sulfa Antibiotics Hives Review of Systems Constitutional: Negative for appetite change, chills and diaphoresis. Respiratory: Negative for cough, choking and chest tightness. Cardiovascular: Negative for leg swelling. Gastrointestinal: Negative for abdominal pain and anal bleeding. Musculoskeletal: Positive for myalgias and neck pain. Neurological: Negative for seizures, speech difficulty and numbness. Objective BP 125/76 (BP Location: Left arm, Patient Position: Sitting, BP Cuff Size: Adult long) Pulse 93 Temp 98 ??F (36.7 ??C) (Oral) Resp 20 Ht 5' 4 (1.626 m) Wt 194 lb (88 kg) SpO2 98% BMI 33.30 kg/m?? Physical Exam Constitutional: General: She is not in acute distress. Appearance: Normal appearance. She is obese. She is not ill-appearing, toxic- appearing or diaphoretic. Cardiovascular: Rate and Rhythm: Normal rate and regular rhythm. Heart sounds: No murmur heard. Pulmonary: Effort: Pulmonary effort is normal. No respiratory distress. Breath sounds: No stridor. No wheezing or rhonchi. Abdominal: Palpations: Abdomen is soft. Skin: General: Skin is warm. Neurological: General: No focal deficit present. Mental Status: She is alert. Assessment/Plan Diagnoses and all orders for this visit: Type 2 diabetes mellitus with hyperglycemia, without long-term current use of insulin (CMS/HCC) Comments: Stable No change in management for now. Orders: - POCT Glucose - Comprehensive Metabolic Panel; Future - Hepatitis C Antibody with Reflex to HCV, RNA, Quantitative, Real-Time PCR; Future - Lipid Panel, Standard; Future - TSH W/Reflex to FT4; Future - CBC auto differential; Future - Albumin, Random Urine W/Creatinine; Future Screening for colon cancer - Cologuard?? colon cancer screening; Future Annual physical exam Comments: Normal cardiopulmonary exam To maintain a healthy and balanced diet. Cervicogenic headache Comments: Follows up with neurology Recently received Botox injection. Orders: - diclofenac (Cataflam) 50 MG tablet; Take 1 tablet (50 mg) by mouth 2 times daily. Encounter for immunization - HEPATITIS B VACCINE ADULT 20 yrs + Dietary counseling Exercise counseling Class 1 obesity due to excess calories with serious comorbidity and body mass index (BMI) of 33.0 to 33.9 in adult Dietary Recommendations: Fruits, vegetables, whole grains, protein foods, and fat-free or low-fat dairy products are healthychoices. Eat different types of protein foods in your diet. This can include seafood, lean meats, poultry, beans, peas, lentils, nuts, seeds, soy products, and eggs. Limit foods and beverages higher in added sugars, saturated fat, and sodium. Exercise Recommendations: At least 150 minutes of moderate-intensity physical activity per week, or an equivalent combinationof moderate- and vigorous-intensity activity Smoking Comments: Patient still smoke 2 to 3 cigarettes a day She wants to quit on her own. Declines help. documented in this encounter Plan of Treatment Upcoming Encounters Date Type Department Care Team (Late st Contact Info) Description 07/29/2024 10:00 AM EDT Office Visit [facility] [address] [place] [address] Alfreda Perez MD [address] [place] [address] Scheduled Orders Name Type Priority Associated Diagnoses Orde r Schedule Cologuard?? colon cancer screening Lab Routine Screening for colon cancer Expected: 04/18/2024 (Approximate), Expires: 04/18/2025 Comprehensive Metabolic Panel Lab Routine Type 2 diabetes mellitus with hyperglycemia, without long-term current use of insulin (CMS/HCC) Expected: 04/18/2024 (Approximate), Expires: 04/18/2025 Hepatitis C Antibody with Reflex to HCV, RNA, Quantitative, Real-Time PCR Lab Routine Type 2 diabetes mellitus with hyperglycemia, without long-term current use of insulin ([facility]) Expected: 04/18/2024, Expires: 04/18/2025 Lipid Panel, Standard Lab Routine Type 2 diabetes mellitus with hyperglycemia, without long-term current use of insulin ([facility]/HCC) Expected: 04/18/2024 (Approximate), Expires: 04/18/2025 TSH W/Reflex to FT4 Lab Routine Type 2 diabetes mellitus with hyperglycemia, without long-term current use of insulin ([facility]/HCC) Expected: 04/18/2024 (Approximate), Expires: 04/18/2025 documented as of this encounter Procedures Procedure Name Priority Date/Time Associated Diagnosis Comments ALBUMIN, RANDOM URINE W/CREATININE Routine 04/18/2024 11:43 AM EDT Type 2 diabetes mellitus with hyperglycemia, without long-term current use of insulin ([facility]) CBC WITH AUTO DIFFERENTIAL Routine 04/18/2024 11:32 AM EDT Type 2 diabetes mellitus with hyperglycemia, without long-term current use of insulin ([facility]) POCT GLUCOSE Routine 04/18/2024 11:30 AM EDT Type 2 diabetes mellitus with hyperglycemia, without long-term current use of insulin ([facility]) documented in this encounter Results * Albumin, Random Urine W/Creatinine (04/18/2024 11:43 AM EDT) Creatinine, Urine 180.38 mg/dL [facility] Microalbumin Urine 8.0 mg/L [facility] Microalbum Creatinine Ratio Ur 4.4 <30 ug/mg cr [facility] Comment:Albumin/Creatinine R at Reference Ranges: Normal: < 30 ug/mg creatinine Microalbuminuria: 30 - 300 ug/mg creatinineClinical Albuminuria: > 300 ug/mg creatinine Urine (Urine, Random) 04/18/2024 11:43 AM EDT 04/18/2024 2:05 PM EDT us Alfreda Perez MD LAB URINE ORDERABLES Final Result [facility] [address] [place] [address] [phone] * CBC auto differential (04/18/2024 11:32 AM EDT) White Blood Count 8.0 4.8 - 10.8 X10*3/uL [facility] Red Blood Count 4.85 4.20 - 5.50 X10*6/uL [facility] Hemoglobin 14.9 12.0 - 16.0 g/dl [facility] Hematocrit 42.8 37.0 - 47.0 % [facility] Mean Corpuscular Volume 88.2 80.0 - 98.0 fL [facility] Mean Corpuscular Hemoglobin 30.7 27.0 - 33.0 pg [facility] Mean Corpuscular HGB Conc 34.8 31.0 - 35.0 g/dl [facility] Red Cell Distribution Width 13.2 11.0 - 16.0 % [facility] Platelet Count 225 160 - 400 X10*3/uL [facility] Mean Platelet Volume 10.6 9.4 - 12.3 fL [facility] Neutrophils Percent Auto 68.2 45 - 73 % [facility] Imm Gran Pct Auto 0.4 0.0 - 0.4 % [facility] Lymphocytes Percent Auto 25.3 20 - 40 % [facility] Monocytes Percent Auto 5.0 2 - 11 % [facility] Eosinophils Percent Auto 0.7 0 - 4 % [facility] Basophils Percent Auto 0.4 0 - 2 % [facility] NRBC Pct Auto 0.0 0.0 - 0.2 /100WBC [facility] Neutrophils Absolute Auto 5.5 2.0 - 8.3 x10*3/uL [facility] Imm Gran Abs Auto 0.03 0.00 - 0.03 X10*3/uL [facility] Lymphocytes Absolute Auto 2.0 1.2 - 4.9 X10*3/uL [facility] Monocytes Absolute Auto 0.4 0.1 - 1.2 X10*3/uL [facility] Eosinophils Absolute Auto 0.1 0.0 - 0.4 X10*3/uL [facility] Basophils Absolute Auto 0.0 0.0 - 0.2 X10*3/uL [facility] NRBC Abs Auto 0.000 0.0 - 0.012 X10*3/uL [facility] Blood Venous blood specimen / Unknown 04/18/2024 11:32 AM EDT 04/18/2024 2:13 PM EDT Alfreda Perez MD LAB BLOOD ORDERABLES Final Result [facility] [address] [place] [phone] * POCT Glucose (04/18/2024 11:30 AM EDT) [facility] Glucose Blood, POC 120 60 - 200 mg/dL [employer] Lot # [id number] Lot# Expiration Date [id number] Comment:fasting Blood Capillary blood specimen / Unknown 04/18/2024 11:30 AM EDT Alfreda Perez MD POINT OF CARE TEST ENTER/ED IT ORDERABLES Final Result documented in this encounter Visit Diagnoses Diagnosis Type 2 diabetes mellitus with hyperglycemia, without long-term current use of insulin ([facility])- Primary Screening for colon cancer Special screening for malignant neoplasms, colon Annual physical exam Routine general medical examination at a health care facility Cervicogenic headache Headache Encounter for immunization Dietary counseling Dietary surveillance and counseling Exercise counseling Class 1 obesity due to excess calories with serious comorbidity and body mass index (BMI) of 33.0 to 33.9 in adult Smoking Tobacco use disorder documented in this encounter Additional Health Concerns Assessment Noted Time PHQ-9 Depression Total Score: 8 04/19/19 25 11:01 AM EDT documented as of this encounter Care Teams Financial Developer Relationship Specialty Start Date End Date Alfreda Perez MD [address] [place] [phone] PCP - General Internal Medicine 01/16/19 Valerie Ram Commercial Sales ManagerNew Media Strategist 10/18/23 documented as of this encounter
--- OUTSIDE RECORDS SUMMARY | 2024-04-18 14:52 | XMS_ITS | Clinical Summary ---
Author Organization [employer] Address [address] [place] [address] 7 [place] [address] Care Team Providers Care Rippler Name Role Phone Alfreda Perez MD Primary Care Provider [phone] Allergies Active Allergy Reactions Criticality Noted Date Comments Cat Dander 03/29/2023 Other Reaction(s): itchy eyes and sneezing Dog Epithelium 03/29/2023 Other Reaction(s): itchy eyes and sneezing Horse-Derived Products 03/29/2023 Other Reaction(s): itchy eyes and sneezing Penicillin V Hives 01/21/2010 Penicillins Hives 01/21/2010 Pollen Extract 03/29/2023 Other Reaction(s): trees, grasses and martinez allergy-watery eyes, sneezing, coughing Sulfa Antibiotics Hives 01/21/2010 Medications cyclobenzaprine (Flexeril) 5 MG tabletIndicatio ns:Neck pain Take 1 tablet (5 mg) by mouth 3 times daily for 10 days. 30 tablet 03/25/19 23 Active pravastatin (Pravachol) 80 MG tablet Take 1 tablet by mouth. Active FreeStyle lancets USE 1 LANCET TWICE DAILY 100 each 5 05/03/19 23 Active FreeStyle lancets USE 1 LANCET TWICE DAILY 03/12/19 23 Active FREESTYLE LITE test strip TEST BLOOD SUGAR DAILY 50 strip 5 10/04/19 23 Active FREESTYLE LITE test strip TEST BLOOD SUGAR DAILY 08/18/19 23 Active Diclofenac Sodium 1 % gelIndications: Tail bone pain To apply to the affected area 3 times a day 100 g 02/10/19 24 Active sertraline (Zoloft) 25 MG tablet TAKE 1 TABLET BY MOUTH EVERY DAY IN THE MORNING 30 tablet 5 02/28/19 24 Active metFORMIN (Glucophage) 500 MG tablet Take 1 tablet (500 mg) by mouth with breakfast and with evening meal. 60 tablet 11 06/01/19 24 Active metFORMIN (Glucophage) 500 MG tablet Take 1 tablet (500 mg) by mouth with breakfast and with evening meal. 180 tablet 3 06/01/19 24 Active omeprazole (PriLOSEC) [address] capsuleIndicati ons:Gastroesoph ageal reflux disease without esophagitis TAKE 1 CAPSULE BY MOUTH EVERY DAY 90 capsule 3 06/02/19 24 Active hydrOXYzine pamoate (Vistaril) 50 MG capsuleIndicati ons:Primary insomnia TAKE 1 CAPSULE (50 MG) BY MOUTH IF NEEDED AT BEDTIME FOR ITCHING. 30 capsule 06/22/19 24 Active loratadine (Claritin) 10 MG tabletIndicatio ns:Itchy eyes TAKE 1 TABLET BY MOUTH EVERY DAY IN THE MORNING 90 tablet 1 06/26/19 24 Active hydrocortisone 2.5 % creamIndication s:Intertrigo APPLY TO AFFECTED AREA TWICE A DAY 28 g 09/13/19 24 Active pravastatin (Pravachol) 80 MG tabletIndicatio ns:Hypercholest erolemia TAKE 1 TABLET (80 MG) BY MOUTH IN THE MORNING 90 tablet 3 03/19/19 25 026 Active spironolactone (Aldactone) 100 MG tabletIndicatio ns:Hidradenitis suppurativa TAKE 1 TABLET BY MOUTH TWICE A DAY 180 tablet 3 03/19/19 25 Active terbinafine (LamISIL) 250 MG tabletIndicatio ns:Onychomycosi s TAKE 1 TABLET (250 MG) BY MOUTH IN THE MORNING 30 tablet 2 03/26/19 25 025 Active diclofenac (Cataflam) 50 MG tabletIndicatio ns:Cervicogenic headache Take 1 tablet (50 mg) by mouth 2 times daily. 60 tablet 5 04/19/19 25 Active diclofenac (Cataflam) 50 MG tabletIndicatio ns:Cervicogenic headache TAKE ONE TABLET TWICE DAILY 60 tablet 5 08/17/19 23 025 Discontinued(Re order (will not trigger notification to Pharmacy)) terbinafine (LamISIL) 250 MG tabletIndicatio ns:Onychomycosi s Take 1 tablet (250 mg) by mouth in the morning. 30 tablet 2 04/25/19 24 025 Discontinued Hospital, Clinic, or Other Facility Administered Medication Ordered Dose Route Frequency Start Date End Date Status lidocaine-prilocaine (Emla) creamIndications:Rib pain on right side TOP Once 04/07/2022 Active Active Problems Problem Noted Date Diagnosed Date Anxiety disorder 02/24/2022 Cervicogenic headache 02/24/2022 Chiari malformation type I 10/07/2021 Type 2 diabetes mellitus 10/07/2021 Backache 12/14/2011 Encounters Date Type Department Care Team Description 04/18/2024 10:45 AM EDT Office Visit [facility] [address] [place] [address] Alfreda Perez MD Type 2 diabetes mellitus with hyperglycemia, without long-term current use of insulin ([facility]) (Primary Dx); Screening for colon cancer; Annual physical exam; Cervicogenic headache; Encounter for immunization; Dietary counseling; Exercise counseling; Class 1 obesity due to excess calories with serious comorbidity and body mass index (BMI) of 33.0 to 33.9 in adult; Smoking 04/18/2024 Travel 04/11/2024 Patient Outreach [facility] [address] [place] [address] Alfreda Perez MD Pre-visit Planning (SDOH negative, Tobacco screening positive. ) 03/25/2024 Refill [facility] [address] [place] [address] Alfreda Simmons MD Onychomycosis 03/17/2024 Refill [facility] [address] [place] [address] Alfreda Simmons MD Hypercholesterolemia; Hidradenitis suppurativa from Last 3 Months Immunizations Name Administration Dates Next Due DT (pediatric) 09/06/2007 Hep B, adult 04/18/2024 Influenza injectable quadriv alent preservative free 02/10/2023,12/10/2020,11/20/2019,2018 Pfizer Covid-19 Vaccine 12+ 04/25/2023 Pneumococcal Conjugate PCV 20 04/25/2023 Tdap 02/28/2019 Social History Tobacco Use Types Packs/Day Years Used Date Smoking Tobacco: Every Day Cigarettes 0.3 33.2 Started: 02/06/1991 Passive Smoke Exposure: Current Smokeless Tobacco: Never Tobacco Cessation:Ready to Q uit: Not Asked; Counseling Given: Not Answered Depression Answer Date Recorded Patient Health Questionnaire-9 Score 8 04/18/2024 Patient Health Questionnaire-9 Score 8 04/18/2024 Last PHQ-9: Questionnaire Data Not on file 0 04/18/2024 Housing Stability Answer Date Recorded What is your housing situation today? I have lorenzo echeverria 04/18/[address] you li [...] Orientation Straight 04/24/2023 11 :19 PM EDT Last Filed Vital Signs Vital Sign Reading [...] Mass Index 33.3 04/18/2024 10:44 AM EDT Plan of Treatment Upcoming Encounters Date Type Department Care Team (Late st Contact Info) Description 07/29/2024 10:00 AM EDT Office Visit [facility] [address] [place] [address] Alfreda Perez MD [address] [place] [address] Health Maintenance Due Date Last Done Comments CT Colonography 1979 Colonoscopy 1979 Colorectal Cancer Screening 1979 FIT DNA/Cologuard 1979 FIT 1979 FOBT 1979 HIV Screening 1979 Sigmoidoscopy 1979 Eye Exam 1989 Family Planning (PISQ) 1994 Diabetes: Urine Protein Screening 1998 04/18/2024 Pap Smear 01/15/2000 Cervical Cancer Screening 2009 HPV/Cotest 2009 Diabetes: Hemoglobin A1C 08/11/20232 024, 03/29/2022, 09/02/2021, Additional history exists COVID-19 Vaccine ( season) 2023 04/25/2023, 07/03/2020, 06/05/2020 Influenza Vaccine (#1) 2023 , 12/10/2020, 11/20/2019, Additional history exists Lipid Panel 04/24/2024 04/25/2023 Hepatitis B Vaccines (2 of 3 - 19+ 3-dose series) 05/16/2024 04/18/2024 Alcohol/Substance Use Screening 04/18/2025 04/18/2024 Depression Screening 04/18/2025 04/18/2024, 04/19/19 25 Diabetes: Foot Exam 04/18/2025 04/18/2024 SDOH Screening 04/18/2025 04/18/2024 Tobacco Screening 04/18/2025 04/18/2024 Mammogram 05/17/2025 05/18/2023, 04/06, 04/19/2019 Zoster Vaccines (1 of 2) 2029 DTaP/Tdap/Td Vaccines (2 - Td or Tdap) 02/28/2029 02/28/2019 RSV Patients and Patients Aged 60 years or older (1 - 1-dose 75+ series) 2054 Hepatitis C Screening Completed 04/25/2023 Pneumococcal Vaccine: Pediatrics (0 to 5 Years) and At-Risk Patients (6 to 49) Years) Completed 04/25/2023 HIB Vaccines Aged Out No longer eligi [...] patient's age to complete this topic Meningococcal Vaccine Aged Out No kerline polina eligible based on patient's age to complete this topic RSV under 20 months Aged Out No longe r eligible based on patient's age to complete this topic Rotavirus Vaccines Aged Out No longer eligible based on patient's age to complete this topic Procedures Procedure Name Priority Date/Time Associated Diagnosis Comments ALBUMIN, RANDOM URINE W/CREATININE Routine 04/18/2024 11:43 AM EDT Type 2 diabetes mellitus with hyperglycemia, without long-term current use of insulin ([facility]) CBC WITH AUTO DIFFERENTIAL Routine 04/18/2024 11:32 AM EDT Type 2 diabetes mellitus with hyperglycemia, without long-term current use of insulin ([facility]) POCT GLUCOSE Routine 04/18/2024 11:30 AM EDT Type 2 diabetes mellitus with hyperglycemia, without long-term current use of insulin (CMS/HCC) BI MAMMOGRAM SCREENING TOMOSYNTHESIS BILATERAL Routine 05/18/2023 10:13 AM EDT HEPATITIS C AB W/REFL TO HCV RNA, QN, PCR Routine 04/25/2023 11:25 AM EDT Type 2 diabetes mellitus with hyperglycemia, without long-term current use of insulin ([facility]) Annual physical exam Obesity (BMI 30-39.9) LIPID PANEL, STANDARD Routine 04/25/2023 11:25 AM EDT Type 2 diabetes mellitus with hyperglycemia, without long-term current use of insulin ([facility]) Annual physical exam Obesity (BMI 30-39.9) POCT GLYCATED HEMOGLOBIN, TOTAL Routine 02/10/2023 3:16 PM EST Type 2 diabetes mellitus with hyperglycemia, without long-term current use of insulin ([facility]) from Last 3 Months or Most Recently Relevant to Health Maintenance Results * Albumin, Random Urine W/Creatinine (04/18/2024 11:43 AM EDT) Creatinine, Urine 180.38 mg/dL [facility] Microalbumin Urine 8.0 mg/L [facility] Microalbum Creatinine Ratio Ur 4.4 <30 ug/mg cr [facility] Comment:Albumin/Creatinine R atio Reference Ranges: Normal: < 30 ug/mg creatinine Microalbuminuria: 30 - 300 ug/mg creatinineClinical Albuminuria: > 300 ug/mg creatinine Urine (Urine, Random) 04/18/2024 11:43 AM EDT 04/18/2024 2:05 PM EDT us Alfreda Perez MD LAB URINE ORDERABLES Final Result [facility] [address] [place] [address] [phone] * CBC auto differential (04/18/2024 11:32 AM EDT) White Blood Count 8.0 4.8 - 10.8 X10*3/uL [facility] Red Blood Count 4.85 4.20 - 5.50 X10*6/uL [facility] Hemoglobin 14.9 12.0 - 16.0 g/dl [facility] Hematocrit 42.8 37.0 - 47.0 % [facility] Mean Corpuscular Volume 88.2 80.0 - 98.0 fL [facility] Mean Corpuscular Hemoglobin 30.7 27.0 - 33.0 pg [facility] Mean Corpuscular HGB Conc 34.8 31.0 - 35.0 g/dl [facility] Red Cell Distribution Width 13.2 11.0 - 16.0 % [facility] Platelet Count 225 160 - 400 X10*3/uL [facility] Mean Platelet Volume 10.6 9.4 - 12.3 fL [facility] Neutrophils Percent Auto 68.2 45 - 73 % [facility] Imm Gran Pct Auto 0.4 0.0 - 0.4 % [facility] Lymphocytes Percent Auto 25.3 20 - 40 % [facility] Monocytes Percent Auto 5.0 2 - 11 % [facility] Eosinophils Percent Auto 0.7 0 - 4 % [facility] Basophils Percent Auto 0.4 0 - 2 % [facility] NRBC Pct Auto 0.0 0.0 - 0.2 /100WBC [facility] Neutrophils Absolute Auto 5.5 2.0 - 8.3 x10*3/uL [facility] Imm Gran Abs Auto 0.03 0.00 - 0.03 X10*3/uL [facility] Lymphocytes Absolute Auto 2.0 1.2 - 4.9 X10*3/uL [facility] Monocytes Absolute Auto 0.4 0.1 - 1.2 X10*3/uL [facility] Eosinophils Absolute Auto 0.1 0.0 - 0.4 X10*3/uL [facility] Basophils Absolute Auto 0.0 0.0 - 0.2 X10*3/uL [facility] NRBC Abs Auto 0.000 0.0 - 0.012 X10*3/uL [facility] Blood Venous blood specimen / Unknown 04/18/2024 11:32 AM EDT 04/18/2024 2:13 PM EDT us Alfreda Perez MD LAB BLOOD ORDERABLES Final Result [facility] [address] [facility] [place] [address] [phone] * POCT Glucose (04/18/2024 11:30 AM EDT) Glucose Blood, POC 120 60 - 200 mg/dL QC Media Lot # [id number] Lot# Expiration Date [id number] Comment:fasting Blood Capillary blood specimen / Unknown 04/18/2024 11:30 AM EDT us Alfreda Perez MD POINT OF CARE TEST ENTER/ED IT ORDERABLES Final Result * BI Mammogram Screening Tomosynthesis Bilateral (05/18/2023 10:13 AM EDT) Anatomical Region Laterality Modality Breast Bilateral Mammography 05/18/2023 10:1 3 AM EDT Narrative 06/05/2023 1:56 AM EDT ? [facility] [place] ? [address] ?[place] [id number] ? Mammography Report ? Signed ? Patient: Sunie,Jacey ?MR#: [id number] ?? [id number] ? : 1980 ?Acct:[id number] ? Age/Sex: 43 / F ?ADM Date: 04/11/24 ? Loc: HO.MAMMO ? Attending : Alfreda Perez MD ? Ordering Physician: Alfreda Perez MD ?Results: 1 ?? Negative ? Date of Service: 05/18/23 ?Follow Up: 1 Year From Orig ?? inal Mammogram ? Procedure(s): MM tomosynthesis screening BI ?? Accession Number(s): [id number] ? cc: Alfreda Perez MD ? EXAMINATION: ?? MM SCREENING DIGITAL BREAST TOMOSYNTHESIS, BILATERAL ? CLINICAL INFORMATION: ? Screening. Asymptomatic. ? COMPARISON: ?? Mammography: This study is compared with prior exams dating back to ?? 2019. ? TECHNIQUE: ?? Digital breast tomosynthesis is performed in both the craniocaudal and ?? mediolateral oblique views along with computer-aided detection (CAD). ?? Synthesized 2D images are generated from the tomosynthesis. ? FINDINGS: ?? The breasts are almost entirely fatty (ACR BI-RADS breast composition ?? Category a). ? There are no significant masses, abnormal calcifications, or other ?? abnormalities. ? MM/MM tomosynthesis screening BI ?? IMPRESSION: ?? No mammographic evidence of malignancy. ? ASSESSMENT: ? BI-RADS BI-RADS 1 - Negative ? RECOMMENDATION: ?? Routine annual mammography screening. ? 1 year F/U ? This examination should not preclude the clinical evaluation of a ?? suspicious palpable abnormality. ? This patient's information was entered into a reminder system with a ?? target due date for their next mammogram. ? Dictated By: ?Talita Mayo MD ? Signed By: ?<Electronically signed by Talita Mayo MD in OV> ? 06/05/23 0152 ? DD/ ? TD/TT: ? Board Handler: ? Procedure Note Donotuseinterpreter, Image - 06/05/2023 [place] [facility] [address] [place], [place] [address] Mammography Report Signed Patient: Jacey EscobarMR#: [id number] : 1980Acct:[id number] Age/Sex: 43 / FADM Date: 05/18/23 Loc: HO.MAMMO Attending Dr: Alfreda Perez MD Ordering Physician: Alfreda Perez MDResults: 1 Negative Date of Service: 05/18/23Follow Up: 1 Year From Orig inal Mammogram Procedure(s): MM tomosynthesis screening BI Accession Number(s): [id number] cc: Alfreda Perez MD EXAMINATION: MM SCREENING DIGITAL BREAST TOMOSYNTHESIS, BILATERAL CLINICAL INFORMATION: Screening. Asymptomatic. COMPARISON: Mammography: This study is compared with prior exams dating back to 2019. TECHNIQUE: Digital breast tomosynthesis is performed in both the craniocaudal and mediolateral oblique views along with computer-aided detection (CAD). Synthesized 2D images are generated from the tomosynthesis. FINDINGS: The breasts are almost entirely fatty (ACR BI-RADS breast composition Category a). There are no significant masses, abnormal calcifications, or other abnormalities. MM/MM tomosynthesis screening BI IMPRESSION: No mammographic evidence of malignancy. ASSESSMENT: BI-RADS BI-RADS 1 - Negative RECOMMENDATION: Routine annual mammography screening. 1 year F/U This examination should not preclude the clinical evaluation of a suspicious palpable abnormality. This patient's information was entered into a reminder system with a target due date for their next mammogram. Dictated By: Talita Mayo MD Signed By: <Electronically signed by Talita Mayo MD in OV> 06/05/23 0152 DD/ 1013 TD/TT: Board Handler: us Alfreda Perez MD IMG BI PROCEDURES Final Res ult * Hepatitis C Antibody with Reflex to HCV, RNA, Quantitative, Real-Time PCR (04/25/2023 11:25 AM EDT) Hepatitis C Antibody Nonreactive Nonreactive [facility] Comment:Antibodies to HCV no t detected; does not exclude early acuteHCV infection. Blood Venous blood specimen / Unknown 04/25/2023 11:25 AM EDT 04/25/2023 1:59 PM EDT Alfreda Perez MD LAB BLOOD ORDERABLES Final Result [facility] [address] [place] [phone] * Lipid Panel, Standard (04/25/2023 11:25 AM EDT) Triglycerides 90 <150 mg/dL [facility] Comment:Desirable Triglyceri de: less than 150 mg/dLBorderline High Triglyceride 150-199 mg/dLHigh Triglyceride: 200-499 mg/dLVery High Triglyceride: greater than or equal to 5OO mg/dL Cholesterol 151 <200 mg/dL [facility] Comment:Desirable Cholestero l: less than 200 mg/dLBorderline High Cholesterol: 200-239 mg/dLHigh Cholesterol: greater than 239 mg/dL LDL Cholesterol Calculated 90 <100 mg/dL [facility] Comment:Desirable LDL: less than 100 mg/dLNear Optimal/Above Optimal LDL: 110- 129 mg/dLBorderline High LDL: 130-159 mg/dLHigh LDL: 160-189 mg/dLVery High LDL: greater than or equal to 190 mg/dL HDL Cholesterol 43 >40 mg/dL [facility] Comment:Desirable HDL: great er than 40 mg/dL Note: This HDL assay may give artificially low results in patients with liver disease. Blood Venous blood specimen / Unknown 04/25/2023 11:25 AM EDT 04/25/2023 1:59 PM EDT us Thevenin Beauzile MD LAB BLOOD ORDERABLES Final Result [facility] [address] [place] [address] [phone] * POCT A1C (02/10/2023 3:16 PM EST) Hemoglobin A1C 4.8 4.0 - 6.0 % QC Media Lot # [id number] Lot# Expiration Date Blood 02/10/2023 3:16 PM EST us Alfreda Perez MD POINT OF CARE TEST ENTER/ED IT ORDERABLES Final Result from Last 3 Months or Most Recently Relevant to Health Maintenance Insurance [facility] C3 MEDICARE [facility] [place] [id number] [place] [id number] [place] [id number] Care Teams Rippler Relationship Specialty Start Date End Date Alfreda Perez MD [address] [place] [address] [place] [address] PCP - General Internal Medicine 01/16/19 Valerie Ram Stenciling Machine TenderTalent Engineer 10/18/23
--- OUTSIDE RECORDS SUMMARY | 2024-04-18 14:52 | XMS_ITS | Encounter Summary ---
Author Organization [employer] Address [address] [place] [address] 7 [place] [address] Care Team Providers Care Drafter Electronic Name Role Phone Alfreda Perez MD Primary Care Provider +1- [phone] Encounter Details Date Type Department Care Team (Latest Contact Info) Description 04/18/2024 Travel Social History Tobacco Use Types Packs/Day Years Used Date Smoking Tobacco: Every Day Cigarettes 0.3 33.2 Started: 02/06/1991 Passive Smoke Exposure: Current Smokeless Tobacco: Never Depression Answer Date Recorded Patient Health Questionnaire-9 Score 8 04/18/2024 Patient Health Questionnaire-9 Score 8 04/18/2024 Last PHQ-9: Questionnaire Data Not on file 0 04/18/2024 Housing Stability Answer Date Recorded What is your housing situation today? I have lorenzoparul echeverria 04/18/[address] you [...] Description 07/29/2024 10:00 AM EDT Office Visit [facility] [address] [place] [address] Alfreda Perez MD [address] [place] [address] documented as of this encounter Visit Diagnoses Not on filedocumented in this encounter Additional Health Concerns Assessment Noted Time PHQ-9 Depression Total Score: 8 04/19/19 25 11:01 AM EDT documented as of this encounter Care Teams Drafter Electronic Relationship Specialty Start Date End Date Alfreda Perez MD [address] [place] [address] PCP - General Internal Medicine 01/16/19 Valerie Ram Assembler Truck TrailerPiece Maker 10/18/23 documented as of this encounter
--- OUTSIDE RECORDS SUMMARY | 2024-04-18 14:52 | XMS_ITS | Encounter Summary ---
Author Organization [employer] Address [address] [place] [address] [address] [place] [address] Care Team Providers Care Inner Tube Cutter Name Role Phone Alfreda Perez MD Primary Care Provider +1- [phone] Reason for Visit * Reason Comments Pre-visit Planning SDOH negative, Tobac co screening positive. Encounter Details Date Type Department Care Team ([facility] Contact Info) Description 04/11/2024 Patient Outreach [facility] [address] [place] [address] Alfreda Perez MD [address] [place] [address] Pre-visit Planning (SDOH negative, Tobacco screening positive. ) Social History Tobacco Use Types Packs/Day Years [...] Recorded Patient Health Questionnaire-2 Score 2 04/25/2023 Internet Access Answer Date Recorded Internet Access [...] PM EDT documented as of this encounter Progress Notes * Olesya Reid - 04/11/2024 11:01 AM EST CC Olesya Rogers placed successful outbound call to patient for pre-visit planning. Patient name and confirmed. Patient confirms appt date and time, and has transportation arrangements. Biggest concern for appointment at this time is no concerns. Appropriate screenings completed in anticipation ofappointment. documented in this encounter Plan of Treatment Upcoming Encounters Date Type Department Care Team (Late st Contact Info) Description 07/29/2024 10:00 AM EDT Office Visit [facility] [address] [place] [address] Alfreda Perez MD [address] [place] [address] documented as of this encounter Visit Diagnoses Not on filedocumented in this encounter Additional Health Concerns Assessment Noted Time PHQ-9 Depression Total Score: 13 024 9:44 AM EDT documented as of this encounter Care Teams Inner Tube Cutter Relationship Specialty Start Date End Date Alfreda Perez MD [address] [place] [phone] PCP - General Internal Medicine 01/16/19 Valerie aRm Electrolysis Needle OperatorHealth Science Instructor 10/18/23 documented as of this encounter
--- OUTSIDE RECORDS SUMMARY | 2024-04-18 14:52 | XMS_ITS | Encounter Summary ---
Author Organization [employer] Address [address] [place] [address] [place] [address] Care Team Providers Care Child Development Professor Name Role Phone Alfreda Perez MD Primary Care Provider [phone]- [phone] Reason for Visit * Reason Comments Med Refill Encounter Details Date Type Department Care Team ([facility] st Contact Info) Description 03/25/2024 Refill [facility] [address] [place] [address] Alfreda Perez MD [address] [place] [address] Onychomycosis Social History Tobacco Use Types Packs/Day Years [...] Description 07/29/2024 10:00 AM EDT Office Visit [facility] [address] [place] [address] Alfreda Perez MD [address] [place] [address] documented as of this encounter Visit Diagnoses Diagnosis Onychomycosis Dermatophytosis of nail documented in this encounter Additional Health Concerns Assessment Noted Time PHQ-9 Depression Total Score: 13 024 9:44 AM EDT documented as of this encounter Care Teams Child Development Professor Relationship Specialty Start Date End Date Alfreda Perez MD [address] [place] [address] PCP - General Internal Medicine 01/16/19 Valerie Ram Health EducatorHazardous Materials Tanker Driver 10/18/23 documented as of this encounter
--- OUTSIDE RECORDS SUMMARY | 2024-04-18 14:52 | XMS_ITS | Encounter Summary ---
Author Organization [employer] Address [address] [place] [address] [place] [address] Care Team Providers Care Propellant Assembler Name Role Phone Alfreda Perez MD Primary Care Provider [phone] Reason for Visit * Reason Comments Med Refill Encounter Details Date Type Department Care Team ([facility] st Contact Info) Description 12/26/2023 Refill [facility] [address] [place] [address] Alfreda Perez MD [address] [place] [address] Onychomycosis Social History Tobacco Use Types Packs/Day [...] Description 07/29/2024 10:00 AM EDT Office Visit [facility] [address] [place] [address] Alfreda Perez MD [address] [place] [address] documented as of this encounter Visit Diagnoses Diagnosis Onychomycosis Dermatophytosis of nail documented in this encounter Additional Health Concerns Assessment Noted Time PHQ-9 Depression Total Score: 13 024 9:44 AM EDT documented as of this encounter Care Teams Propellant Assembler Relationship Specialty Start Date End Date Alfreda Perez MD [address] [place] [address] PCP - General Internal Medicine 01/16/19 [place] [employer] 10/18/23 documented as of this encounter
[2024-04-18 15:09] LABS: Alanine Aminotransferase 11 U/L (0-31); Albumin Level 4.4 g/dL (3.5-5.0); Alkaline Phosphatase 74 U/L (39-117); Anion Gap 12 (12-20); Aspartate Amino Transferase 16 U/L (5-31); Bilirubin Total 0.5 mg/dL (0.0-1.0); Blood Urea Nitrogen 20 mg/dL (9-16); Calcium 9.3 mg/dL (8.4-10.2); Carbon Dioxide 22 mmol/L (22-29); Chloride 110 mmol/L (96-108); Cholesterol 171 mg/dL (<200); Estimated Glomerular Filt Rate > 60; Glucose Random 83 mg/dL (60-115); HDL Cholesterol 45 mg/dL (>40); LDL Cholesterol Calculated 107 mg/dL (<100); Potassium 4.2 mmol/L (3.3-5.1); Sodium 140 mmol/L (135-145); TSH reflex Free T4 2.43 uIU/mL (0.32-4.0); Total Protein 7.5 g/dL (6.5-8.0); Triglycerides 97 mg/dL (<150)
[2024-04-19 04:16] LABS: ~HepC Num1 0.11 S/CO (0.00-0.79); ~Hepatitis C Antibody Nonreactive (Nonreactive)
== END 2024-04-18 11:30 | disposition home or self-care (01) ==
LOC: HO.CHCLDS 11:29
PROVIDERS: Visit Provider Internal Medicine
DX: E11.65 Type 2 diabetes mellitus with hyperglycemia (principal)
CPT/HCPCS: 36415; 80053; 80061; 82043; 82570; 84443; 85025; 86803